=== PATIENT | female | born 1930 | race Caucasian/White ===

== ENCOUNTER 2020-05-05 02:05 | Emergency (ER) | payer MEDICARE ==
[~2020-05-05] VITALS: Ht 170.2 cm; Wt 54.9 kg
[~2020-05-05 02:05] MED LIST: ACET500T73 PO; LOSA100T14 PO; METO-237 PO; METO50TA6 PO; MULT-43 PO
[2020-05-05 02:24] VITALS: BP 151/101
[2020-05-05 02:27] VITALS: BP 151/101
[2020-05-05] MEDS ORDERED: HYDR25TA9 PO (02:35)
[2020-05-05 02:40] VITALS: BP 129/58
[2020-05-05 03:01] LABS: BASOPHIL % 0.7 % (0.0-0.2); EOSINOPHIL # 0.1 10^3/uL (0.0-0.2); EOSINOPHIL % 1.8 % (0.0-5.0); LYMPHOCYTES # 1.87 10^3/uL1 (1.0-4.8); MEAN CORP HGB 31.4 pg (26-34); MONOCYTES # 0.6 10^3/uL (0.3-0.8); NEUTROPHIL # 2.9 10^3/uL (1.8-7.7); PLATELET COUNT 303 10^3/uL (150-400); RED CELL DISTRIBUTION WIDTH 12.8 % (11.5-14.5)
--- NOTE | 2020-05-05 03:09 | PCM.EKG ---
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
--- NOTE | 2020-05-05 03:10 | ER.PDOC ---
General Chief Complaint: General Complaint Stated Complaint: HIGH BLOOD PRESSURE TRAVEL OUT OF US: No Time seen by MD: 03:07 Source: patient Exam Limitations: no limitations History of Present Illness Initial Comments High blood pressure and fatigue. Timing/Duration: 1/2 hour Severity: mild Associated Symptoms: denies symptoms Allergies: Coded Allergies: Penicillins (Verified Allergy, Unknown, SWELLING, RASH, 03/11/20) codeine (Verified Allergy, Unknown, 03/11/20) Home Meds Reported Medications Hydrochlorothiazide (HYDROCHLOROTHIAZIDE) 25 Mg Tablet, 1 TAB PO DAILY, #30 TAB 5 Refills 05/05/20 Multivit With Calcium,Iron,Min (MULTIPLE VITAMINS FOR WOMEN) 1 Each Tablet, 1 TAB PO QD for 30 Days, #30 TAB 0 Refills 03/11/20 Losartan Potassium (LOSARTAN POTASSIUM) 100 Mg Tablet, 1 TAB PO DAILY24, #30 TAB 5 Refills 03/11/20 Metoprolol Succinate (METOPROLOL SUCCINATE) 50 Mg Tab.er.24h, 1 TAB PO BID, #30 TAB 5 Refills 03/11/20 Past Medical History Medical History: hypertension Surgical History: no surgical history Social History Alcohol Use: none Drug Use: none Review of Systems Constitutional: no symptoms reported EENTM: no symptoms reported Respiratory: no symptoms reported Cardiovascular: see HPI Gastrointestinal: no symptoms reported Genitourinary: no symptoms reported All Other Systems: Reviewed and Negative Physical Exam General Appearance: No Apparent Distress, WD/WN EENT: eyes nml inspection, nml ENT inspection, pharynx nml Neck: Non-Tender, Full Range of Motion, Supple, Normal Inspection Respiratory: chest non-tender, lungs clear, normal breath sounds, no respiratory distress CVS: reg rate & rhythm, no murmur, no gallop, pulses nml, nml capillary refill Gastrointestinal: Normal Bowel Sounds, No Pulsatile Mass, Non Tender Back: Normal Inspection Extremities: Normal Range of Motion Neurologic/Psychiatric: securities settlement processor II-XII NML as Tested Skin: Normal Color Results/Orders Results/Orders Orders - ARIANA FLORES MD Cbc With Auto Diff (05/05/20 02:50) Comprehensive Metabolic Panel (05/05/20 02:50) Creatine Kinase (05/05/20 02:50) Creatine Kinase Mb (05/05/20 02:50) Troponin I (05/05/20 02:50) Xr Chest 1v (05/05/20 02:50) Ekg-Routine (05/05/20 02:50) Vital Signs Date Time Temp Pulse Resp B/P (MAP) Pulse Ox O2 Delivery O2 Flow Rate FiO2 05/05/20 03:26 78 18 123/61 (81) 05/05/20 02:40 129/58 (81) 05/05/20 02:27 84 18 05/05/20 02:24 98.1 84 18 05/05/20 02:24 98.1 84 18 151/101 (118) 100 Room Air Laboratory Tests Test 05/05/20 02:22 White Blood Count 5.5 10^3/uL (4.5-11.0) Red Blood Count 4.56 10^6/uL (4.00-5.20) Hemoglobin 14.3 g/dL (12.0-15.0) Hematocrit 41.9 % (36.0-46.0) Mean Corpuscular Volume 91.9 fL (78-100) Mean Corpuscular Hemoglobin 31.4 pg (26-34) Mean Corpuscular Hemoglobin Concent 34.1 g/dL (33-36.5) Red Cell Distribution Width 12.8 % (11.5-14.5) Platelet Count 303 10^3/uL (150-400) Mean Platelet Volume 11.6 fL (7.8-11.0) H Neutrophils (%) (Auto) 53.0 % (41.0-85.0) Lymphocytes (%) (Auto) 34.0 % (24.0-44.0) Monocytes (%) (Auto) 10.0 % (5.0-12.0) Neutrophils # (Auto) 2.9 10^3/uL (1.8-7.7) Lymphocytes # (Auto) 1.87 10^3/uL1 (1.0-4.8) Monocytes # (Auto) 0.6 10^3/uL (0.3-0.8) Absolute Immature Granulocyte (auto 0.03 10^3 u/L (0-2) Absolute Eosinophils (auto) 0.1 10^3/uL (0.0-0.2) Immature Granulocytes % 0.50 % (0.00-0.50) Eosinophils % 1.8 % (0.0-5.0) Basophils % 0.7 % (0.0-0.2) H Basophils # 0.0 10^3/uL (0.0-0.1) Sodium Level 129 mmol/L (132-145) #L Potassium Level 3.2 mmol/L (3.6-5.2) L Chloride Level 103.0 mmol/L (96-109) Carbon Dioxide Level 25.0 mmol/L (20.0-32) Anion Gap 4.2 Blood Urea Nitrogen 30 mg/dL (7-18) H Creatinine 1.30 mg/dL (0.59-1.40) Estimated GFR () 46.9 (>/=60) Est GFR (CKD-EPI)(Non-Afr Micronesian) 38.7 (>/=60) BUN/Creatinine Ratio 23.0 Glucose Level 114 mg/dL (70-110) H Calcium Level 11.8 mg/dL (8.4-10.5) H Total Bilirubin 0.7 mg/dL (0.2-1.0) Aspartate Amino Transferase (AST) 19 U/L (0-35) Alanine Aminotransferase (ALT) 18 U/L (12-78) Alkaline Phosphatase 115 U/L (50-136) Total Creatine Kinase 38 U/L (26-192) Creatine Kinase MB < 0.5 ng/mL (0.5-3.6) L Troponin I < 0.02 ng/mL (0.00-0.05) Total Protein 7.8 g/dL (6.4-8.2) Albumin 3.7 g/dL (3.4-5.0) Globulin 4.1 Albumin/Globulin Ratio 0.902 Progress Progress CXR: Senescent changes or underlying chronic lung disease with presumed atelectasis or scarring at the left costophrenic angle. Infiltrate is considered less likely, but is not entirely excluded in the appropriate clinical setting. Patient told that her Potassium is low and Calcium high, she will need to follow up with her PCP tomorrow for further evaluation of her hyperkalemia. She is asymptomatic at this time. Her blood pressure readings have been normal the whole time in the ED. EKG/XRAY/CT/US EKG: NSR, LBBB EKG Comments: Rate 90, A fib ER DEPART Departure Time of Disposition: 03:42 Disposition: 01 HOME, SELF-CARE Impression: Primary Impression: Hypertension Additional Impressions: Anxiety Hypercalcemia Condition: Stable Referrals: SARAI MOJICA HOMOEOPATH (PCP) PRIMARY CARE PROVIDER Additional Instructions: F/U with your PCP in 2-3 days Return to ED if worsening or concerns Duration or Time Spent with Pa: 30 min Problem Qualifiers Primary Impression: Hypertension Hypertension type: unspecified Qualified Codes: I10 - Essential (primary) hypertension ARIANA FLORES MD May 05, 2020 03:10
--- NOTE | 2020-05-05 03:22 | DIREP ---
PROCEDURE:CHEST 1 VIEW COMPARISON:None. INDICATIONS:Elevated blood pressure FINDINGS: LUNGS/PLEURA:Senescent changes or underlying chronic lung disease with mild interstitial thickening throughout the bilateral hemithoraces. Ill-defined opacity at the left costophrenic angle may reflect atelectasis or potential scarring. Infiltrate is considered less likely, but is not entirely excluded in the appropriate clinical setting. VASCULATURE:No pulmonary vascular congestion. CARDIAC:The heart is not enlarged. MEDIASTINUM:Mediastinal contours appear within acceptable limits with mild tortuosity of the descending thoracic aorta. BONES:No acute abnormality. CONCLUSION: 1. Senescent changes or underlying chronic lung disease with presumed atelectasis or scarring at the left costophrenic angle. Infiltrate is considered less likely, but is not entirely excluded in the appropriate clinical setting. Dictated by: Juarez Ibrahim M.D. On 05/05/2020 at 03:20 AM
[2020-05-05 03:26] VITALS: BP 123/61
[2020-05-05 03:29] LABS: ALANINE AMINOTRANSFERASE(ML) 18 U/L (12-78); ALKALINE PHOSPHATASE 115 U/L (50-136); ASPARTATE AMINO TRANSFERASE 19 U/L (0-35); CALCIUM 11.8 mg/dL (8.4-10.5); GLUCOSE 114 mg/dL (70-110)
[2020-05-06] MEDS ORDERED: METO50TA6 PO (15:33)
== END 2020-05-05 03:59 | disposition home or self-care (01) ==
LOC: ER 02:05
DX: I10 Essential (primary) hypertension (principal); E83.52 Hypercalcemia; F41.9 Anxiety disorder, unspecified; Z79.899 Other long term (current) drug therapy; Z88.0 Allergy status to penicillin; Z88.5 Allergy status to narcotic agent
CPT/HCPCS: 36415; 71045; 80053; 82550; 82553; 84484; 85025; 93005; 99285

== ENCOUNTER 2020-05-06 14:27 | Emergency (ER) | payer MEDICARE ==
[~2020-05-06] VITALS: Ht 177.8 cm; Wt 56.7 kg
--- NOTE | 2020-05-06 14:29 | NUR ---
ARRIVAL PT ARRIVED TO ED WITH C/O RIGHT SIDE WEAKNESS, UNCLEAR SPEECH AND WORD SALAD. CODE STROKE CALLED IMMIDIATELY. PT UNABLE TO ANSWER QUESTIONS WITH WORD SALAD AND SLURRED SPEECH AND RIGHT SIDE FACIAL DROOP. PT ABLE TO TRANSFER FROM WHEELCHAIR TO BED. SON AT BEDSIDE TO PROVIDE HISTORY. SON STATES SYMPTOMS STARTED AT 1410.
--- NOTE | 2020-05-06 14:30 | NUR ---
CODE STROKE CODE STROKE CALLED.
--- NOTE | 2020-05-06 14:33 | NUR ---
CT PT TAKEN TO CT BY UMPQUA CLINICAL MICROBIOLOGIST.
--- NOTE | 2020-05-06 14:38 | NUR ---
CT PT BACK FROM CT.
--- NOTE | 2020-05-06 14:38 | NUR ---
KAREL VINSON CALLED FOR MEDICATION LIST TO CONFIRM NO BLOOD THINNER USE AT THIS TIME.
--- NOTE | 2020-05-06 14:39 | NUR ---
PT CHANGE IN CONDITION. PT BACK FROM CT. PT HAS COMPLETE RIGHT SIDE PARALYSIS, PT DROOLING. PT UNABLE TO FOLLOW COMMANDS AT THIS TIME. CHANGE IN CONDITION REPORTED TO DR ROCHA.
--- NOTE | 2020-05-06 14:46 | PCM.EKG ---
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
[2020-05-06 14:51] VITALS: BP 133/64
--- NOTE | 2020-05-06 14:53 | DIREP ---
PROCEDURE:CT HEAD OR BRAIN W/O CONTRAST COMPARISON:None. INDICATIONS:STROKE TECHNIQUE:CT images were created without intravenous contrast. The study was reviewed on abdominal, brain, subdural and bone windows the FINDINGS: VENTRICLES:Mild ventriculomegaly with mild atrophy. Mild white matter changes seen in the centrum semiovale and in the periventricular white matter which may be secondary to small vessel disease and/or aging. Basal ganglia and thalamus are normal. CEREBRUM:Normal cerebral morphology with appropriate murphy white matter differentiation. No evidence for unilateral hyperdense MCA sign is seen. No hyperdense venous sinus, effacement of sulci, loss of insular cortex or loss of lenticular nucleus is seen. No acute infarct, bleed or mass lesion is seen. No acute or chronic epidural, subdural subarachnoid hemorrhage is seen. No edema, midline shift or increased intracranial pressure is seen. CEREBELLUM:No posterior fossa infarcts or mass lesions are seen. Mild atrophy noted. BRAINSTEM:No focal ischemic changes in the henny or the midbrain. BASAL CISTERNS:Negative. HEMORRHAGE:No MASS LESION:No ACUTE INFARCT:No SKULL:No skull fracture, scalp hematoma or radiopaque foreign body is seen. SINUSES:No air-fluid levels in the maxillary or sphenoid sinuses as visualized. No fluid in the mastoids. OTHER:None CONCLUSION:Mild ventriculomegaly with mild atrophy and mild white matter changes. No acute infarct, bleed or mass lesion is seen. Dictated by: Bipin Tai MD on 05/06/2020 at 02:49 PM
[2020-05-06 15:01] LABS: BASOPHIL % 0.3 % (0.0-0.2); EOSINOPHIL # 0.1 10^3/uL (0.0-0.2); LYMPHOCYTES # 1.51 10^3/uL1 (1.0-4.8); LYMPHOCYTES % 25.6 % (24.0-44.0); MONOCYTES # 0.4 10^3/uL (0.3-0.8); MONOCYTES % 7.1 % (5.0-12.0); NEUTROPHIL # 3.8 10^3/uL (1.8-7.7); NEUTROPHILS % 65.3 % (41.0-85.0); PLATELET COUNT 309 10^3/uL (150-400); RED CELL DISTRIBUTION WIDTH 12.8 % (11.5-14.5)
--- NOTE | 2020-05-06 15:03 | ER.PDOC ---
General Chief Complaint: Stroke Symptoms Stated Complaint: POSSIBLE STROKE TRAVEL OUT OF US: No Time seen by MD: 14:29 Source: patient, family Exam Limitations: no limitations History of Present Illness Initial Comments Pt actually seen her PCP this morning. She went home and took a "bite of lunch" and then got up and sat down in recliner and then told her something was wrong and needed to go to the hospital. Sx started at 1410 hours with just a slurred speech. On arrival here, she had slurred speech and seemed to have difficulty understanding commands. Pt went to CT and started having some difficulty controlling right arm. Now back to room she can' move rt arm but can't girp and is certainly week, can't smile and is now drooling. Rt leg is strong and equal to the left. Contraindication for anticoagulation was a GI bleed November 2019 Severity: severe Associated Symptoms: denies symptoms Allergies: Coded Allergies: Penicillins (Verified Allergy, Unknown, SWELLING, RASH, 03/11/20) codeine (Verified Allergy, Unknown, 03/11/20) Home Meds Reported Medications Metoprolol Tartrate 50MG (LOPRESSER 50MG) 50 Mg Tablet, 50 MG PO BID for HYPERTENSION, #60 TAB 05/06/20 Losartan Potassium (LOSARTAN POTASSIUM) 100 Mg Tablet, 1 TAB PO DAILY24, #30 TAB 5 Refills 03/11/20 Discontinued Reported Medications Hydrochlorothiazide (HYDROCHLOROTHIAZIDE) 25 Mg Tablet, 1 TAB PO DAILY, #30 TAB 5 Refills 05/05/20 Multivit With Calcium,Iron,Min (MULTIPLE VITAMINS FOR WOMEN) 1 Each Tablet, 1 TAB PO QD for 30 Days, #30 TAB 0 Refills 03/11/20 Metoprolol Succinate (METOPROLOL SUCCINATE) 50 Mg Tab.er.24h, 1 TAB PO BID, #30 TAB 5 Refills 03/11/20 Past Medical History Medical History: hypertension Surgical History: no surgical history Social History Smoking: non-smoker Alcohol Use: none Drug Use: none Review of Systems Constitutional: other Results/Orders Results/Orders Orders - ROJELIO ROCHA MD Cbc With Auto Diff (05/06/20 14:39) Comprehensive Metabolic Panel (05/06/20 14:39) Creatine Kinase (05/06/20 14:39) PT (05/06/20 14:39) Xr Chest 1v (05/06/20 14:39) Partial Thromboplastin Time. (05/06/20 14:39) Troponin I (05/06/20 14:39) Ekg-Routine (05/06/20 14:39) Ct Head Wo Contrast (05/06/20 14:39) Rt O2 Per Hour (05/06/20 14:39) Saline Lock (05/06/20 14:39) Alteplase (Activase) (05/06/20 15:36) Alteplase (Activase) (05/06/20 15:34) Cta Head (05/06/20 15:34) Cta Neck (05/06/20 15:34) Vital Signs Date Time Temp Pulse Resp B/P (MAP) Pulse Ox O2 Delivery O2 Flow Rate FiO2 05/06/20 14:51 98.2 94 16 05/06/20 14:51 98.2 94 16 133/64 (87) 99 Room Air 05/06/20 14:51 98.2 94 16 99 Laboratory Tests Test 05/06/20 14:50 White Blood Count 5.9 10^3/uL (4.5-11.0) Red Blood Count 4.19 10^6/uL (4.00-5.20) Hemoglobin 13.0 g/dL (12.0-15.0) Hematocrit 38.6 % (36.0-46.0) Mean Corpuscular Volume 92.1 fL (78-100) Mean Corpuscular Hemoglobin 31.0 pg (26-34) Mean Corpuscular Hemoglobin Concent 33.7 g/dL (33-36.5) Red Cell Distribution Width 12.8 % (11.5-14.5) Platelet Count 309 10^3/uL (150-400) Mean Platelet Volume 10.8 fL (7.8-11.0) Neutrophils (%) (Auto) 65.3 % (41.0-85.0) Lymphocytes (%) (Auto) 25.6 % (24.0-44.0) Monocytes (%) (Auto) 7.1 % (5.0-12.0) Neutrophils # (Auto) 3.8 10^3/uL (1.8-7.7) Lymphocytes # (Auto) 1.51 10^3/uL1 (1.0-4.8) Monocytes # (Auto) 0.4 10^3/uL (0.3-0.8) Absolute Immature Granulocyte (auto 0.04 10^3 u/L (0-2) Absolute Eosinophils (auto) 0.1 10^3/uL (0.0-0.2) Immature Granulocytes % 0.70 % (0.00-0.50) H Eosinophils % 1.0 % (0.0-5.0) Basophils % 0.3 % (0.0-0.2) H Basophils # 0.0 10^3/uL (0.0-0.1) Prothrombin Time 10.5 SEC (9.3-11.3) Prothrombin Time INR (Non-Therap) 1.0 Activated Partial Thromboplast Time 23.5 SEC (24.67-30.72) Sodium Level 141 mmol/L (132-145) Potassium Level 3.3 mmol/L (3.6-5.2) L Chloride Level 106.0 mmol/L (96-109) Carbon Dioxide Level 22.8 mmol/L (20.0-32) Anion Gap 15.5 Blood Urea Nitrogen 35 mg/dL (7-18) H Creatinine 1.11 mg/dL (0.59-1.40) Estimated GFR () 56.3 (>/=60) Est GFR (CKD-EPI)(Non-Afr Fijian) 46.5 (>/=60) BUN/Creatinine Ratio 31.0 Glucose Level 137 mg/dL (70-110) H Calcium Level 11.0 mg/dL (8.4-10.5) H Total Bilirubin 0.9 mg/dL (0.2-1.0) Aspartate Amino Transferase (AST) 18 U/L (0-35) Alanine Aminotransferase (ALT) 16 U/L (12-78) Alkaline Phosphatase 104 U/L (50-136) Total Creatine Kinase 40 U/L (26-192) Troponin I < 0.02 ng/mL (0.00-0.05) Total Protein 7.0 g/dL (6.4-8.2) Albumin 3.6 g/dL (3.4-5.0) Globulin 3.4 Albumin/Globulin Ratio 1.058 Progress Progress labs are actually unremarkable and the CT and CTA also came back unremarkable. Pt was given TPA per weight and over approximately 30 minutes, her neuro functions all returned to normal. Spoke with Dr. Vargas, kacey-medicine neurologist, and he recommended the TPA and get the CTA. Pt given the TPA prior to the CTA being done. technical documentation specialist reported that her sx started improving while in CT scanner. Spoke with Dr. Wynne and reported the results of the CTA and her response to the TPA. He did the video after all sx had resolved. He recommended admission to a certified stroke center. I called [facility] as [facility] are the Certified Stroke Center for our area. They did an auto except and pt is being transferred to them as I am typing this up. ER DEPART Departure Time of Disposition: 17:31 Disposition: 70 DISC/XFER TO [facility] Impression: Primary Impression: CVA (cerebral vascular accident) Condition: Improved Patient Instructions: Stroke Prevention, Gkbh-dp-Ogeq, Stroke, Ofaa-bc-Ofip, Stroke, Therapy After, Adult Referrals: SARAI MOJICA CRUST SORTER (PCP) PRIMARY CARE PROVIDER Duration or Time Spent with Pa: 1.6 hrs. Critical Care Note Total Time (mins): 35 Comments See note on all the calls and transferring of the pt. ROJELIO ROCHA MD May 06, 2020 15:03
--- NOTE | 2020-05-06 15:16 | DIREP ---
PROCEDURE:CHEST 1 VIEW COMPARISON:[facility], CR, XRAY CHEST SINGLE VW, 05/05/2020, 02:54 AM. INDICATIONS:STROKE FINDINGS: LUNGS/PLEURA:No significant pulmonary parenchymal abnormalities. No effusions. The lungs are well-expanded and clear. No ground-glass or interstitial infiltrates are seen. No pneumonia, heart failure or effusions identified. VASCULATURE:Normal. Unremarkable pulmonary vasculature. CARDIAC:Markedly tortuous aorta including the ascending, arch and the descending thoracic aorta. MEDIASTINUM:Normal. No visible mass or adenopathy. BONES:The levoscoliosis of the spine is positional. OTHER:Negative. CONCLUSION:No active disease. No ground-glass infiltrates, heart failure or pneumonia is seen. Dictated by: Bipin Tai MD on 05/06/2020 at 03:14 PM
[2020-05-06 15:23] LABS: ALANINE AMINOTRANSFERASE(ML) 16 U/L (12-78); ALKALINE PHOSPHATASE 104 U/L (50-136); ASPARTATE AMINO TRANSFERASE 18 U/L (0-35); CARBON DIOXIDE 22.8 mmol/L (20.0-32); GLUCOSE 137 mg/dL (70-110)
--- NOTE | 2020-05-06 15:25 | NUR ---
TELESTROKE DR ROCHA ON THE PHONE WITH TELESTROKE SERVICE.
--- NOTE | 2020-05-06 15:28 | NUR ---
TELESTROKE NEUROLOGIST DR ROCHA ON THE PHONE WITH NEUROLOGIST.
[2020-05-06] MEDS ORDERED: METO50TA6 PO (15:33)
[2020-05-06] MEDS ORDERED: ACTIVASE IV STA (15:34)
[2020-05-06] MEDS ORDERED: ALTEPLASE 100 MG IV ONE (15:36)
--- NOTE | 2020-05-06 15:48 | NUR ---
ACTIVACE TOTAL DOSE GIVEN 49.1MG GIVEN TOTAL BOLUS DOSE 4.9MG IV DRIP 44.2MG OVER 60 MINUTES. ADMINISTRATION WITNESSED BY Darling BLEVINS RN.
--- NOTE | 2020-05-06 16:53 | DIREP ---
PROCEDURE:CTA HEAD NECK COMPARISON:None. INDICATIONS:cva, confusion TECHNIQUE:Initially, a head CT was performed without contrast. After obtaining the patient's consent, CTA images of the head and neck were obtained with non-ionic contrast, including multi-planar/3-D imaging to optimize visualization of vascular anatomy. FINDINGS: NECK CTA: Limited evaluation due to early timing of the contrast bolus. AORTIC ARCH:Normal configuration. There is aneurysmal dilatation of the ascending thoracic aorta measuring 4.5 cm in diameter. RIGHT CAROTID SYSTEM:Mild stenosis of the proximal right internal carotid artery secondary to calcified atherosclerotic plaque. Otherwise unremarkable. LEFT CAROTID SYSTEM:Atherosclerotic calcifications in the carotid bifurcation and proximal left internal carotid artery without flow-limiting stenosis. VERTEBRAL ARTERIES: Left vertebral artery is dominant. Otherwise unremarkable. NECK TISSUES:Enhancing/hyperdense right thyroid nodule measuring 0.9 cm. LUNGS:Ground-glass opacities in the periphery of the left upper lobe and dependent aspect of the right lower lobe. MEDIASTINUM:Unremarkable. BONE:Mild spondylosis and mild leftward curvature of the cervical spine. No aggressive osseous lesion seen. HEAD CTA: INTERNAL CAROTIDS:Mild atherosclerosis of the clinoid and supraclinoid segments without evidence of flow-limiting stenosis. ANTERIOR CEREBRALS:Unremarkable. MIDDLE CEREBRALS:Unremarkable. VERTEBRALS/BASILAR:Unremarkable. POSTERIOR CEREBRALS:Unremarkable. PCOMM'S:Not visualized. CONCLUSION: 1. Limited evaluation due to early timing of the contrast bolus. 2. No large vessel occlusion or flow-limiting stenosis. 3. Aneurysmal dilatation of the ascending thoracic aorta. 4. Enhancing/hyperdense right thyroid nodule. Consider further evaluation with ultrasound. Dictated by: Stanislav Rivas MD. On 05/06/2020 at 04:43 PM
--- NOTE | 2020-05-06 16:57 | NUR ---
DR GLENNY ROCHA SPOKE WITH DR MURRIETA AND DR MURRIETA IS READY FOR TELESTROKE COMPUTER ASSESSMENT.
--- NOTE | 2020-05-06 16:59 | NUR ---
DR SNYDER PERFORMED ASSESSMENT VIA COMPUTER.
--- NOTE | 2020-05-06 17:08 | NUR ---
[facility] DR ROCHA ON PHONE WITH [facility] TRANSFER LINE.
--- NOTE | 2020-05-06 17:13 | NUR ---
[facility] ACCEPT[facility] PT ACCEPTED ER TO ER TO DR SHAFFER. ARSALAN GUEVARA.
== END 2020-05-06 17:25 | disposition other institution (70) ==
LOC: ER 14:27
DX: I63.9 Cerebral infarction, unspecified (principal); I10 Essential (primary) hypertension; Z79.899 Other long term (current) drug therapy; Z88.0 Allergy status to penicillin; Z88.5 Allergy status to narcotic agent
CPT/HCPCS: 36415; 37195; 70450; 70496; 70498; 71045; 80053; 82550; 84484; 85025; 85610; 85730; 93005; 99291; Q9965; 99285; J2997

== ENCOUNTER → 2020-05-06 | Outpatient (CLI) | payer MEDICARE ==
[~2020-05-06] MED LIST changes: +HYDR25TA9 PO
[2020-05-06 13:30] LABS: CALCIUM 10.7 mg/dL (8.4-10.5); CARBON DIOXIDE 25.3 mmol/L (20.0-32)
== END | disposition home or self-care (01) ==
LOC: NPLAB 12:06
PROVIDERS: ATTEND Nurse Practitioner Family
DX: E83.52 Hypercalcemia (principal)
CPT/HCPCS: 36415; 80053; 82330; 83970

== ENCOUNTER 2021-05-02 06:16 | Inpatient (IN) | payer MEDICARE ==
[2021-05-02] VITALS (8 sets, daily range): BP systolic 128–145; BP diastolic 65–81
[~2021-05-02] VITALS: Ht 160 cm; Wt 52.2 kg
--- NOTE | 2021-05-02 07:13 | PCM.EKG ---
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 : 1930 Requested By: CAMDEN FROST Order Number: [id number] Reading MD: Camden Frost Measurements Intervals [place] Rate: 101 P: [place]: QRS: 34 QRSD: 139 T: 109 QT: 398 QTc: 516 Interpretive Statements Atrial fibrillation Nonspecific intraventricular conduction delay Anteroseptal infarct, old Abnormal T, consider ischemia, lateral leads Artifact in lead(s) I,II,III,aVR,aVL,aVF,V3,V6 Compared to ECG 05/06/2020 14:43:31 Intraventricular conduction delay now present T-wave abnormality now present Possible ischemia now present Atrial flutter no longer present AV block, advanced (high-grade) no longer present Electronically Signed On 05-10-2021 7:49:33 NUCLEAR MEDICINE SPECIALIST by Camden Frost Please click the below link to view image of tracing.
[2021-05-02 07:20] LABS: BASOPHIL % 0.7 % (0.0-0.2); EOSINOPHIL # 0.1 10^3/uL (0.0-0.2); EOSINOPHIL % 1.3 % (0.0-5.0); LYMPHOCYTES # 0.96 10^3/uL1 (1.0-4.8); LYMPHOCYTES % 17.9 % (24.0-44.0); MEAN CORP HGB 31.2 pg (26-34); MONOCYTES # 0.4 10^3/uL (0.3-0.8); MONOCYTES % 6.9 % (5.0-12.0); NEUTROPHIL # 3.9 10^3/uL (1.8-7.7); PLATELET COUNT 201 10^3/uL (150-400); RED CELL DISTRIBUTION WIDTH 14.1 % (11.5-14.5)
--- NOTE | 2021-05-02 07:39 | ER.PDOC ---
General Chief Complaint: Requesting Medical Care Stated Complaint: DIFF BREATHING Time seen by MD: 07:32 Source: patient Exam Limitations: no limitations History of Present Illness Initial Comments Difficulty breathing for about 3 to 4 days. No fever or chills. Patient has a mild cough. She denies chest pain. Severity: moderate Prior Episodes/Possible Cause: no prior episodes Associated Symptoms: cough Allergies: Coded Allergies: Penicillins (Verified Allergy, Unknown, SWELLING, RASH, 03/11/20) codeine (Verified Allergy, Unknown, 03/11/20) Home Meds Reported Medications Atorvastatin 40MG (LIPITOR 40MG) 40 Mg Tablet, 1 TAB PO DAILY, #30 TAB 5 Refills 05/02/21 Carvedilol 6.25MG (COREG 6.25MG) 6.25 Mg Tablet, 1 TAB PO BID, #180 TAB 1 Refill 05/02/21 Diltiazem Hcl (DILTIAZEM 24HR CD) 120 Mg Cap.er.24h, 60 MG PO BID, CAPSULE 05/02/21 Apixaban (Eliquis) 2.5 Mg Tablet, 2.5 MG PO BID, TABLET 05/02/21 Metoprolol Tartrate 50MG (LOPRESSER 50MG) 50 Mg Tablet, 50 MG PO BID for HYPERTENSION, #60 TAB 05/06/20 Losartan Potassium (LOSARTAN POTASSIUM) 100 Mg Tablet, 1 TAB PO DAILY24, #30 TAB 5 Refills 03/11/20 Past Medical History Medical History: cardiac problems Surgical History: other Family History Significant Family History: no pertinent family hx Social History Smoking: non-smoker Alcohol Use: none Drug Use: none Review of Systems Constitutional: no symptoms reported EENTM: no symptoms reported Respiratory: see HPI Cardiovascular: no symptoms reported Gastrointestinal: no symptoms reported All Other Systems: Reviewed and Negative Physical Exam General Appearance: No Apparent Distress, WD/WN Neck: Non-Tender, Full Range of Motion, Supple, Normal Inspection Respiratory: chest non-tender, no respiratory distress, no accessory muscle use, crackles Cardiovascular: Normal Peripheral Pulses, Regular Rate, Rhythm, No Edema, No Gallop, No JVD, No Murmur Gastrointestinal: Normal Bowel Sounds, No Organomegaly, No Pulsatile Mass, Non Tender, Soft Extremities: Normal Range of Motion, Non-Tender, Normal Inspection, No Pedal Edema, No Calf Tenderness, Normal Capillary Refill Neurologic/Psychiatric: medical staff services manager II-XII NML as Tested, No Motor/Sensory Deficits, Alert, Normal Mood/Affect, Oriented x 3 Skin: Normal Color, Warm/Dry Lymphatic: No Adenopathy Results/Orders Results/Orders Orders - ARIANA FLORES MD Covid19 Antigen Sofi Patel (05/02/21 07:39) Vital Signs Date Time Temp Pulse Resp B/P (MAP) Pulse Ox O2 Delivery O2 Flow Rate FiO2 05/02/21 07:03 98.4 98 20 135/67 (89) 95 Room Air 05/02/21 06:40 98.4 98 20 95 05/02/21 06:40 98.4 98 20 Laboratory Tests Test 05/02/21 07:10 05/02/21 07:39 White Blood Count 5.4 10^3/uL (4.5-11.0) Red Blood Count 4.20 10^6/uL (4.00-5.20) Hemoglobin 13.1 g/dL (12.0-15.0) Hematocrit 41.4 % (36.0-46.0) Mean Corpuscular Volume 98.6 fL (78-100) Mean Corpuscular Hemoglobin 31.2 pg (26-34) Mean Corpuscular Hemoglobin Concent 31.6 g/dL (33-36.5) L Red Cell Distribution Width 14.1 % (11.5-14.5) Platelet Count 201 10^3/uL (150-400) Mean Platelet Volume 12.3 fL (7.8-11.0) H Neutrophils (%) (Auto) 73.0 % (41.0-85.0) Lymphocytes (%) (Auto) 17.9 % (24.0-44.0) L Monocytes (%) (Auto) 6.9 % (5.0-12.0) Neutrophils # (Auto) 3.9 10^3/uL (1.8-7.7) Lymphocytes # (Auto) 0.96 10^3/uL1 (1.0-4.8) L Monocytes # (Auto) 0.4 10^3/uL (0.3-0.8) Absolute Immature Granulocyte (auto 0.01 10^3 u/L (0-2) Absolute Eosinophils (auto) 0.1 10^3/uL (0.0-0.2) Immature Granulocytes % 0.20 % (0.00-0.50) Eosinophils % 1.3 % (0.0-5.0) Basophils % 0.7 % (0.0-0.2) H Basophils # 0.0 10^3/uL (0.0-0.1) Prothrombin Time 10.9 SEC (9.6-12.0) Prothrombin Time INR (Non-Therap) 1.0 Activated Partial Thromboplast Time 20.5 SEC (24.67-30.72) D-Dimer 0.48 mg/L (0.19-0.49) Sodium Level 142 mmol/L (132-145) Potassium Level 4.9 mmol/L (3.6-5.2) Chloride Level 108.0 mmol/L (96-109) Carbon Dioxide Level 23.2 mmol/L (20.0-32) Anion Gap 15.7 Blood Urea Nitrogen 14 mg/dL (7-18) Creatinine 0.77 mg/dL (0.59-1.40) Estimated GFR () 85.6 (>/=60) Est GFR (CKD-EPI)(Non-Afr Ecuadorean) 70.7 (>/=60) BUN/Creatinine Ratio 18.0 Glucose Level 126 mg/dL (70-110) H Calcium Level 10.5 mg/dL (8.4-10.5) Total Bilirubin 1.3 mg/dL (0.2-1.0) H Aspartate Amino Transferase (AST) 56 U/L (0-35) H Alanine Aminotransferase (ALT) 61 U/L (12-78) Alkaline Phosphatase 113 U/L (50-136) Total Creatine Kinase 61 U/L (26-192) Creatine Kinase MB 0.5 ng/mL (0.5-3.6) Troponin I High Sensitivity < 4 ng/L (0-50) Pro-B-Type Natriuretic Peptide 4055 pg/mL (0-450) H Total Protein 6.2 g/dL (6.4-8.2) L Albumin 3.4 g/dL (3.4-5.0) Globulin 2.8 Albumin/Globulin Ratio 1.214 Helicobacter pylori Screen POSITIVE (NEGATIVE) SARS-CoV-2 Antigen (Rapid) NEGATIVE (NEGATIVE) Progress Progress CXR: Coarse interstitial markings in the lower lungs are more prominent than on previous study. Some of this may be attributable to suboptimal patient positioning. Lower lobe infiltrates cannot be excluded. Recommend PA and lateral chest images when clinically stable. EKG/XRAY/CT/US EKG: nonspecific ST T wave chg EKG Comments: HR 101, A fib ER DEPART Departure Time of Disposition: 09:41 Disposition: 09 ADMITTED INPATIENT Impression: Primary Impression: Acute exacerbation of CHF (congestive heart failure) Additional Impressions: Shortness of breath Atrial fibrillation Condition: Stable Referrals: SARAI MOJICA MOTORCYCLE MECHANIC (PCP) PRIMARY CARE PROVIDER Comments Admitted to Dr. Rajan. Spoke with Dr. Salazar who will be consulting. Duration or Time Spent with Pa: 60 min Problem Qualifiers Primary Impression: Acute exacerbation of CHF (congestive heart failure) Heart failure type: unspecified Qualified Codes: I50.9 - Heart failure, unspecified Additional Impressions: Atrial fibrillation Atrial fibrillation type: unspecified Qualified Codes: I48.91 - Unspecified atrial fibrillation ARIANA FLORES MD May 02, 2021 07:39
[2021-05-02 07:47] LABS: ALANINE AMINOTRANSFERASE(ML) 61 U/L (12-78); ALKALINE PHOSPHATASE 113 U/L (50-136); ASPARTATE AMINO TRANSFERASE 56 U/L (0-35); CALCIUM 10.5 mg/dL (8.4-10.5); CARBON DIOXIDE 23.2 mmol/L (20.0-32); GLUCOSE 126 mg/dL (70-110)
--- NOTE | 2021-05-02 08:06 | DIREP ---
PROCEDURE:CHEST 1 VIEW COMPARISON:[facility], CR, XRAY CHEST SINGLE VW, 05/06/2020, 02:55 PM. INDICATIONS:SHORTNESS OF BREATH FINDINGS: LUNGS/PLEURA:The patient is rotated to the right. There are coarse interstitial markings in the lower lungs which are more prominent on the previous study. This may be accentuated by the suboptimal patient positioning. VASCULATURE:Normal. Unremarkable pulmonary vasculature. CARDIAC:Normal. No cardiac silhouette abnormality or cardiomegaly. MEDIASTINUM:Aorta is tortuous. BONES:Normal. No fracture or visible bony lesion. OTHER:Negative. CONCLUSION:Coarse interstitial markings in the lower lungs are more prominent than on previous study. Some of this may be attributable to suboptimal patient positioning. Lower lobe infiltrates cannot be excluded. Recommend PA and lateral chest images when clinically stable. Dictated by: Gagandeep Gaona M.D. on 05/02/2021 at 08:03 AM
[2021-05-02] MEDS ORDERED: CARV6.25 PO (09:41)
[2021-05-02] MEDS ORDERED: DILT120C30 PO (09:41)
[2021-05-02] MEDS ORDERED: APIX2.5T PO (09:41)
[2021-05-02] MEDS ORDERED: ATOR40TA PO (09:41)
[2021-05-02] MEDS ORDERED: LOPRESSOR PO STA (10:13)
[2021-05-02] MEDS ORDERED: LASIX IV STA (10:13)
[2021-05-02] MEDS ORDERED: TOPROL XL PO ONE (10:20)
[2021-05-02] MEDS ORDERED: LASIX ONE (10:20)
[2021-05-02] MEDS ORDERED: LOPRESSER ONE (10:25)
[2021-05-02] MEDS ORDERED: MAGN400T36 PO (11:01)
--- NOTE | 2021-05-02 11:50 | NUR ---
ARRIVAL PATIENT ARRIVED ON MED-SURG UNIT AT THIS TIME TO ROOM #331. RECEIVED REPORT, ASSUMED CARE FOR PATIENT AT THIS TIME. VITAL SIGNS OBTAINED, PLACED PATIENT ON TELEMETRY #3.
--- NOTE | 2021-05-02 13:54 | PCM.HP ---
History of Present Illness Reason for Visit: Shortness of breath History of Present Illness 89-year-old female who presented to the Emergency Room with progressively worsening shortness of breath for the last 4 days with associated orthopnea and paroxysmal nocturnal dyspnea. Upon presentation to the ED, EKG shows atrial fibrillation with controlled ventricular response. ProBNP was noted to be 4055. A diagnosis of acute decompensated heart failure Patient is admitted to the hospital for further management. Patient started on IV diuretics. Human Resources Advisor consulted. Past Medical History Cardiac: AFIB, HTN Review of Systems Respiratory: Shortness of breath, SOB with excertion Cardiovascular: No: Chest Pain, Palpitations Gastrointestinal: No: Nausea, Vomiting Allergies: Coded Allergies: Penicillins (Verified Allergy, Unknown, SWELLING, RASH, 03/11/20) codeine (Verified Allergy, Unknown, 03/11/20) Scheduled Apixaban (Eliquis), 2.5 MG PO BID, (Reported) Atorvastatin 40MG (Lipitor 40MG), 1 TAB PO DAILY, (Reported) Carvedilol 6.25MG (Coreg 6.25MG), 1 TAB PO BID, (Reported) Diltiazem Hcl (Diltiazem 24HR Cd), 60 MG PO BID, (Reported) Losartan Potassium (Losartan Potassium), 1 TAB PO DAILY24, (Reported) Magnesium Oxide (Magnesium), 1 TAB PO BID, (Reported) Metoprolol Tartrate 50MG (Lopresser 50MG), 50 MG PO BID, (Reported) VTE VTE Risk Total Score: 3 VTE Risk Score VTE Risk: Score 0-1 = Low Risk (Aggressive mobilization; early ambulation; no VTE prophylaxis required) Score 2: Moderate Risk (Intermittent/Pneumatic Compression Device OR Lovenox/Heparin/Coumadin) Score 3-4: High Risk (Intermittent/Pneumatic Compression Device AND Lovenox/Heparin/Coumadin) Score > or =5: Highest Risk (Intermittent/Pneumatic Compression Device AND Lovenox/Heparin/Coumadin) Antico:Hep/LMWH/Coum/Xarelto: No VTE VTE Present on Admission: No Currently receiving anticoagul: No VTE Risk Total Score: 3 Antico:Hep/LMWH/Coum/Xarelto: No Exam Vital Signs Vital Signs Date Time Temp Pulse Resp B/P (MAP) Pulse Ox O2 Delivery O2 Flow Rate FiO2 05/02/21 12:39 Room Air 05/02/21 12:20 98.1 89 18 131/67 (88) 95 General Appearance: Alert, Oriented X3, moderate distress HEENT: Atraumatic, PERRLA Respiratory: Other (Few bibasilar crackles) Cardiovascular: Other (Irregular irregular) Abdominal: Normal bowel sounds, Soft, No tenderness Extremities: No clubbing, No cyanosis Skin: No breakdown, No lesions Neuro: Normal gait, Normal speech Psych/Mental Status: Mental status NL, Mood NL Assessment/Plan Assessment/Plan Assessment/Plan Plan Admit IV diuresis Monitor kidney function urine output Monitor and correct electrolytes Serial troponins 2D echo Consult cardiology for evaluation and further recommendations Reconcile home meds GI and DVT prophylaxis as appropriate Expect length of stay more than one midnight Problems: (1) Acute exacerbation of CHF (congestive heart failure) Status: Acute ICD Code: I50.9 - Heart failure, unspecified SNOMED: 051168709, [id number] (2) Atrial fibrillation Status: Acute ICD Code: I48.91 - Unspecified atrial fibrillation SNOMED: 05564115 (3) Hypertension ICD Code: I10 - Essential (primary) hypertension SNOMED: 28952560 Patient History: FH: breast cancer G8 MOTHER, , Age:98 FH: coronary artery bypass surgery G8 BROTHER 19 CHILD FH: coronary artery disease G8 BROTHER 19 CHILD Hypertension G8 SISTER G8 SISTER No known health problems G8 BROTHER G8 SISTER G8 SISTER 19 CHILD No Family History of: Alzheimer's disease Asthma Cerebrovascular disorder Chronic obstructive pulmonary disease Congestive heart failure Diabetes insipidus Diabetes mellitus Parkinson's disease Problem Qualifiers (1) Acute exacerbation of CHF (congestive heart failure): Heart failure type: unspecified Qualified Codes: I50.9 - Heart failure, unspecified (2) Atrial fibrillation: Atrial fibrillation type: unspecified Qualified Codes: I48.91 - Unspecified atrial fibrillation HANNY WILSON MD May 02, 2021 13:54
[2021-05-02] MEDS ORDERED: TYLENOL PO PRN (14:00)
[2021-05-02] MEDS: COZAAR PO SCH (14:12)
[2021-05-02] MEDS: LASIX IV SCH (18:46)
[2021-05-02] MEDS: ELIQUIS PO SCH (20:25)
[2021-05-02] MEDS: COREG PO SCH (20:25)
[2021-05-02] MEDS: LIPITOR PO SCH (20:25)
--- NOTE | 2021-05-02 21:22 | PCM.ECHO ---
APPROVED REPORT EXAM: Comprehensive 2D, Doppler, and color-flow Echocardiogram. Patient Location: IN-PATIENT Indications Congestive Heart Failure 2D Dimensions LVOT Diameter 2.06 (1.8-2.4cm) LVEF(%) 45.23 (>50%) M-Mode Dimensions RVDd 2.35 (2.1-3.2cm) Left Atrium(MM) 3.65 (2.5-4.0cm) IVSd 0.95 (0.7-1.1cm) Aortic Root 2.55 (2.2-3.7cm) LVDd 4.45 (4.0-5.6cm) Aortic Cusp Exc 1.75 (1.5-2.0cm) PWd 0.65 (0.7-1.1cm) MV EPSS 0.80 (<0.5cm) IVSs 1.15 cm FS (%) 26.65 % LVDs 3.25 (2.0-3.8cm) ESV(Teich) 43.24 ml PWs 1.10 cm LVEF(%) 52.29 (>50%) Volumes Biplane 2D LV Volumes Biplane 2D LA Volumes LVEDv A4C 43.73 mL LA ESV Index LVESv A4C 23.95 mL Aortic Valve AoV Peak Titi. 1.20 m/s AoV VTI 19.35 cm AO Peak GR. 5.95 mmHg AO Mean GR. 3.15 mmHg LVOT VTI 11.99 cm LVOT Peak Titi. 0.76 m/s KAMERON(VTI)/BSA 2.06 cm2/m2 KAMERON (VTI) 2.06 cm2 AI P 1/2 Time 388.80 ms Mitral Valve MV E Velocity 0.85m/s MR Peak Gr. 58.75mmHg E/A Ratio 0.0 TDI E/Lateral E' 0.0 E/Medial E' 0.0 E/Septal E 0.0 Pulmonary Valve PV Peak Velocity 0.55m/s PV Peak Grad. 1.35mmHg RVOT VTI 6.77cm Tricuspid Valve TR P. Velocity 2.85m/s RAP ESTIMATE 10.00mmHg TR Peak Gr. 33.55mmHg RVSP 43.55mmHg LEFT VENTRICLE Left ventricle is moderately dilated. Left ventricular systolic function is moderately decreased. There is normal left ventricular wall thickness. There is global hypokinesis of the left ventricle. Severe diastolic dysfunction is present (restrictive filling). There is no ventricular septal defect visualized. No left ventricle thrombus noted on this study. LVEF is 40%. RIGHT VENTRICLE The right ventricle is normal size. Right ventricular systolic function is moderately reduced. There is normal right ventricular wall thickness. ATRIA Left atrium is moderately dilated. Right atrium is severely dilated. The interatrial septum is intact with no evidence for an atrial septal defect. AORTIC VALVE The aortic valve is normal in structure. There is no aortic valvular stenosis. Severe aortic regurgitation. There is no aortic valvular vegetation. MITRAL VALVE The mitral valve is normal in structure. There is no mitral valve stenosis. Severe mitral regurgitation. There is no evidence of mitral valve vegetations. TRICUSPID VALVE The tricuspid valve is normal in structure. There is no tricuspid valve stenosis. Severe tricuspid regurgitation. There is no tricuspid valve vegetations. PULMONIC VALVE The pulmonary valve is normal in structure. There is no pulmonic valvular stenosis. There is no pulmonic valvular regurgitation. GREAT VESSELS Aortic root is severely dilated. Pulmonary artery is not well visualized. Aortic arch is not well visualized. IVC is dilated. PERICARDIUM There is no pericardial effusion. There is no pleural effusion. Other Information Study Quality: Fair Further Testing Further Testing : For further evaluation SHAWN is recommended. Recommend CTA Aorta to rule out aortic aneurysym <Conclusion> Left ventricular systolic function is moderately decreased. LVEF is 40%. There is global hypokinesis of the left ventricle. Left ventricle is moderately dilated. Severe diastolic dysfunction is present (restrictive filling). Left atrium is moderately dilated. Right atrium is severely dilated. Severe aortic regurgitation. Severe mitral regurgitation. Severe tricuspid regurgitation. Aortic root is severely dilated. IVC is dilated. Electronically signed by : KATIE KRISHNAN. 05/02/2021 21:21:56
--- NOTE | 2021-05-02 22:47 | DIREP ---
PROCEDURE:CTA CHEST COMPARISON:None. INDICATIONS:Severly Dilated ascending aorta on echo r/o Aortic aneurysm/dissection TECHNIQUE:Post contrast axial images through the chest with multiplanar MIP/3D reconstructions. FINDINGS: PULMONARY ARTERIES:No evidence of pulmonary embolus.. THORACIC AORTA:Suboptimally opacified somewhat limiting evaluation for dissection, no dissection flap is visualized. Aortic root is aneurysmal measuring 5.5 x 5.4 cm. Aortic arch and descending thoracic aorta are ectatic. Extensive contrast mixing artifact seen in the arch and descending thoracic aorta making assessment of the arch and descending thoracic aorta nondiagnostic for dissection. LUNGS:Compressive atelectasis secondary to effusions. PLEURA:Moderate right and small left pleural effusion. CARDIAC:Cardiomegaly. RV:LV ratio (norm <0.9): Not applicable in the absence of pulmonary embolism. MEDIASTINUM:Normal. THYROID:Normal. BONES:Thoracic spondylosis. OTHER:No additional findings. CONCLUSION: 1. 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 2. Suboptimal aortic opacification with contrast, no obvious dissection seen in the ascending aorta, nondiagnostic assessment for dissection in the aortic arch and descending thoracic aorta. 3. Bilateral pleural effusions, moderate on the right. 4. Cardiomegaly. Dictated by: Singh Beatty M.D. on 05/02/2021 at 10:41 PM
[2021-05-03 00:28] VITALS: BP 132/65
--- NOTE | 2021-05-03 02:08 | NUR ---
PT WILL NOT GO TO HEART CATH ON 05/03/21 DUE TO CAT SCAN RESULTS. DR COHN WILL ENTER A NOTE AND CONSULT WITH DR GAMINO IN THE MORNING.
[2021-05-03 04:20] VITALS: BP 133/77
[2021-05-03 05:58] LABS: BASOPHIL # 0.1 10^3/uL (0.0-0.1); BASOPHIL % 0.7 % (0.0-0.2); EOSINOPHIL % 0.6 % (0.0-5.0); LYMPHOCYTES # 1.38 10^3/uL1 (1.0-4.8); LYMPHOCYTES % 20.7 % (24.0-44.0); MEAN CORP HGB 31.7 pg (26-34); MONOCYTES # 0.6 10^3/uL (0.3-0.8); MONOCYTES % 9.1 % (5.0-12.0); NEUTROPHIL # 4.6 10^3/uL (1.8-7.7); NEUTROPHILS % 68.9 % (41.0-85.0); PLATELET COUNT 211 10^3/uL (150-400); RED CELL DISTRIBUTION WIDTH 13.9 % (11.5-14.5)
[2021-05-03 06:13] LABS: CALCIUM 10.7 mg/dL (8.4-10.5); CARBON DIOXIDE 25.5 mmol/L (20.0-32)
--- NOTE | 2021-05-03 06:42 | CNH ---
DATE OF CONSULTATION: 05/02/2021 DICTATOR NAME: KATIE KRISHNAN DO INDICATION: Atrial fibrillation/acute decompensated heart failure. HISTORY OF PRESENT ILLNESS: This is an 89-year-old female who presented to the Emergency Room with progressively worsening shortness of breath for the last 4 days with associated orthopnea and paroxysmal nocturnal dyspnea. Upon presentation to the ED, EKG shows atrial fibrillation with controlled ventricular response. ProBNP was noted to be 4055. A diagnosis of acute decompensated heart failure was made and a consultation was placed to Cardiology Service for evaluation. PAST MEDICAL HISTORY: Significant for: 1. Chronic atrial fibrillation. 2. History of stroke, on oral anticoagulation. 3. Hyperlipidemia. 4. Hypertension. PAST SURGICAL HISTORY: Noncontributory. ALLERGIES: SHE IS ALLERGIC TO PENICILLIN AND CODEINE. MEDICATIONS: 1. She takes at home includes Lipitor 40 mg p.o. at bedtime. 2. Coreg 6.25 mg p.o. b.i.d. 3. Diltiazem 120 mg p.o. daily. 4. Eliquis 2.5 mg p.o. b.i.d. 5. Losartan 100 mg p.o. daily. FAMILY HISTORY: She denies any family history of premature coronary artery disease or sudden cardiac . SOCIAL HISTORY: She denies alcohol use, denies tobacco use, denies illicit drug use. REVIEW OF SYSTEMS: As per HPI and as per previous records. All systems are reviewed and negative for interval change. PHYSICAL EXAMINATION: VITAL SIGNS: Blood pressure is 128/74, respiratory rate is 16, pulse is 76, temperature 98.1, pulse oximetry is 95% on room air. GENERAL: She is in no apparent distress, alert and oriented x 3. HEENT: Normocephalic, atraumatic. Extraocular muscles intact. Pupils equally round, reactive to light and accommodation. CARDIAC: S1, S2. No gallops, murmurs, rubs, or clicks. LUNGS: Clear to auscultation bilaterally. No wheezing, rhonchi or rales. ABDOMEN: Soft, nontender, nondistended. Positive bowel sounds in all four quadrants. No hepatosplenomegaly. EXTREMITIES: No cyanosis, no clubbing, no edema, +2 pedal pulses palpable bilaterally. NEUROLOGIC: No neurological deficits. Sensation is intact. IMPRESSION: 1. Acute decompensated heart failure secondary to systolic and diastolic dysfunction. 2. Chronic atrial fibrillation with controlled ventricular response. 3. Left ventricular ejection fraction of 40%. 4. Severe aortic regurgitation. 5. Severe mitral regurgitation. 6. Severe tricuspid regurgitation. 7. Ascending aortic aneurysm measuring 5.[address] of the chest. 8. Cardiomyopathy. 9. Hypertension. 10. Hyperlipidemia. RECOMMENDATIONS: This is an 89-year-old female who presented to the Emergency Room with progressively worsening shortness of breath with orthopnea, paroxysmal nocturnal dyspnea. She is in acute decompensated heart failure secondary to systolic and diastolic dysfunction. A 2D echo shows a left ventricular ejection fraction of 40% with global hypokinesis of the left ventricle. She is also noted to have multivalvular disease with severe aortic regurgitation, severe mitral regurgitation and severe tricuspid regurgitation. In addition, she was noted to have a severely dilated aortic root on 2D echo. A CTA of the aorta revealed a 5.5 x 5.4 cm ascending aortic aneurysm. 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 It is unclear if the ascending aneurysm is new for her. She certainly would benefit from evaluation by vascular surgeon given this finding. No invasive cardiac workup is necessary at this time. I would recommend that she be transferred to a tertiary institution where she can be evaluated by vascular surgeon given the finding of an aortic aneurysm measuring 5.5 x 5.4 cm. In the meantime, I agree with Coreg 6.25 mg p.o. b.i.d., aspirin 81 mg p.o. daily, and losartan 100 mg p.o. daily. I also recommend strict I's and O's, daily weights, fluid restriction as well as sodium restriction. Eventually, she would benefit from cardiac ischemic workup given her low ejection fraction with severe multivalvular insufficiency. Petr BURCH D.O. DR: KEON/OTIS RUIZD: [id number] RECEIPT: [id number] MTDMarcela
[2021-05-03 07:42] VITALS: BP 128/79
[2021-05-03] MEDS: ASPIRIN EC PO SCH (08:19)
[2021-05-03] MEDS: LASIX IV SCH (08:19)
[2021-05-03] MEDS: PROTONIX PO SCH (08:20)
[2021-05-03] MEDS: ELIQUIS PO SCH ×2 (08:21→21:57)
[2021-05-03] MEDS: COREG PO SCH ×2 (08:21→21:57)
[2021-05-03] MEDS ORDERED: KLOR-CON 10 PO SCH (08:30)
--- NOTE | 2021-05-03 10:44 | DIET.OP ---
Nutrition Asmt/Malnutrit 2-17 Actual Date of Review: May 03, 2021 Nutritional Screening: Malnutr/Diet Consult Diagnosis: CHF, SOB, Afib Pertinent Medical Hx/Surgical: CHF, HTN, HLD, Hx stroke Subjective Information: BLLE edema noted. Receiving diuresis. Wt stated by pt, recommend obtaining current wt. K low, receiving replacement. Good meal intake, will monitor for changes. Skin intact. Unable to speak with pt, current diet order appropriate to meet needs. Current Diet Order/Nutrition S: Cardiac diet Patient /S.O: Cannot Verbalize Diet EDU Pertinent Meds Lasix, lipitor, coreg, cozaar, protonix, KCl Pertinent Labs K 3.2, Glu 112. H. Pylori positive Height (Inches): 63 Current Weight: 115 %IBW: 100 Recent Weight Change: No Weight Status: Appropriate GI Symptoms: None Food Allergies: No Cultural/Ethnic/Muslim Francisca: None stated Usual Diet at Home: Regular BEE in Kcals: Use Current Weight Calories/Kcals/K-30 kcal/kg CBW Kcals Calculated: 2524-9284 kcal/day Protein: Use Current Weight Protein g/k.0-1.3 g/kg CBW Protein Calculated: 52-57 g/day Fluid: ml: 1500 mL or per Nutritional Problem: Nutr. Problems Present Problems: Impaired nutritient utilization (sodium, fluids) Etiology: CHF dx, edema Signs/Symptoms: BLLE edema, SOB, diuresis required RD Comments: Continue current nutrition PoC. Expected Outcomes PO intake >75%. Adequate hydration. Wt stabilization. Labs WNL. Normal Weight %: 90%-110% (Normal) BMI%: 19-24 (Normal) Serum Albumin g/dl: 3.5-5.0 (Normal) Malnutrtion/Nutrition Risk Edu: No RD Follow-Up Date: May 10, 2021 Notificiation Needed?: No KHUSHBOO SORENSON LD - TELE May 03, 2021 10:44
[2021-05-03 11:42] VITALS: BP 110/63
--- NOTE | 2021-05-03 12:11 | PRM.PN ---
Subjective Subjective Date: May 03, 2021 Time: 09:00 Subjective Patient was short of breath earlier this morning but she is feeling better now. I discussed with the patient and patient family including [id number] is being very familiar with her medical condition over the last few years about the echo findings and the CT a of the chest findings regarding aortic root aneurysm and boat outboard engine mechanic recommendations. As per patient and family they are aware of this finding for the last few years and the last time they were told by their boat outboard engine mechanic in [facility] and cardiothoracic surgeon that she is very high risk for any surgical intervention mainly because of her age and it was decided not to pursue it surgically. We attempted to call [facility] in [place] to get CT report that was last done to compare but unfortunately because of the weekend medical records closed. Patient History: FH: breast cancer G8 MOTHER, , Age:98 FH: coronary artery bypass surgery G8 BROTHER 19 CHILD FH: coronary artery disease G8 BROTHER 19 CHILD Hypertension G8 SISTER G8 SISTER No known health problems G8 BROTHER G8 SISTER G8 SISTER 19 CHILD No Family History of: Alzheimer's disease Asthma Cerebrovascular disorder Chronic obstructive pulmonary disease Congestive heart failure Diabetes insipidus Diabetes mellitus Parkinson's disease VTE VTE Risk Total Score: 3 VTE Risk Score VTE Risk: Score 0-1 = Low Risk (Aggressive mobilization; early ambulation; no VTE prophylaxis required) Score 2: Moderate Risk (Intermittent/Pneumatic Compression Device OR Lovenox/Heparin/Coumadin) Score 3-4: High Risk (Intermittent/Pneumatic Compression Device AND Lovenox/Heparin/Coumadin) Score > or =5: Highest Risk (Intermittent/Pneumatic Compression Device AND Lovenox/Heparin/Coumadin) Antico:Hep/LMWH/Coum/Xarelto: Yes Mechanical device ordered: Yes Review of Systems Respiratory: Shortness of breath, SOB with excertion Cardiovascular: No: Chest Pain, Palpitations Gastrointestinal: No: Nausea, Vomiting Allergies: Coded Allergies: Penicillins (Verified Allergy, Unknown, SWELLING, RASH, 03/11/20) codeine (Verified Allergy, Unknown, 03/11/20) Scheduled Apixaban (Eliquis), 2.5 MG PO BID, (Reported) Atorvastatin 40MG (Lipitor 40MG), 1 TAB PO DAILY, (Reported) Carvedilol 6.25MG (Coreg 6.25MG), 1 TAB PO BID, (Reported) Diltiazem Hcl (Diltiazem 24HR Cd), 60 MG PO BID, (Reported) Losartan Potassium (Losartan Potassium), 1 TAB PO DAILY24, (Reported) Magnesium Oxide (Magnesium), 1 TAB PO BID, (Reported) Metoprolol Tartrate 50MG (Lopresser 50MG), 50 MG PO BID, (Reported) Objective Vitals and I/O Vital Sign - Last 24 Hours 05/02/21 05/02/21 05/02/21 05/02/21 12:20 12:39 14:12 17:00 Temp 98.1 98.1 Pulse 89 80 Resp 18 16 B/P (MAP) 131/67 (88) 131/67 133/77 (95) Pulse Ox 95 96 O2 Delivery Room Air Room Air Room Air 05/02/21 05/02/21 05/02/21 05/02/21 20:12 20:25 22:02 22:30 Temp 98.1 Pulse 76 76 Resp 16 B/P (MAP) 128/74 (92) 128/74 Pulse Ox 95 O2 Delivery Room Air Room Air Room Air 05/03/21 05/03/21 05/03/21 05/03/21 00:28 04:20 07:42 08:21 Temp 97.5 97.9 97.3 Pulse 107 96 106 106 Resp 16 16 18 B/P (MAP) 132/65 (87) 133/77 (95) 128/79 (95) 128/79 Pulse Ox 95 95 95 O2 Delivery Vent Room Air 05/03/21 05/03/21 10:19 11:42 Temp 97.5 Pulse 112 Resp 18 B/P (MAP) 110/63 (79) Pulse Ox 94 O2 Delivery Room Air General: Alert, Oriented X3, moderate distress HEENT: Atraumatic, PERRLA Lungs: Other (Few bibasilar crackles) Heart: Other (Irregular irregular) Abdomen: Normal bowel sounds, Soft, No tenderness Extremities: No clubbing, No cyanosis Neuro: Normal gait, Normal speech Psych/Mental Status: Mental status NL, Mood NL All Results(Lab/Rad) Laboratory Tests Test 05/02/21 14:56 05/02/21 19:44 05/03/21 05:30 Troponin I High Sensitivity < 4 ng/L Bedside Glucose 111 White Blood Count 6.7 10^3/uL Red Blood Count 4.19 10^6/uL Hemoglobin 13.3 g/dL Hematocrit 40.3 % Mean Corpuscular Volume 96.2 fL Mean Corpuscular Hemoglobin 31.7 pg Mean Corpuscular Hemoglobin Concent 33.0 g/dL Red Cell Distribution Width 13.9 % Platelet Count 211 10^3/uL Mean Platelet Volume 11.7 fL Neutrophils (%) (Auto) 68.9 % Lymphocytes (%) (Auto) 20.7 % Monocytes (%) (Auto) 9.1 % Neutrophils # (Auto) 4.6 10^3/uL Lymphocytes # (Auto) 1.38 10^3/uL1 Monocytes # (Auto) 0.6 10^3/uL Absolute Immature Granulocyte (auto 0.01 10^3 u/L Absolute Eosinophils (auto) 0.0 10^3/uL Immature Granulocytes % 0.10 % Eosinophils % 0.6 % Basophils % 0.7 % Basophils # 0.1 10^3/uL Sodium Level 140 mmol/L Potassium Level 3.2 mmol/L Chloride Level 105.0 mmol/L Carbon Dioxide Level 25.5 mmol/L Glucose Level 112 mg/dL Blood Urea Nitrogen 14 mg/dL Creatinine 0.83 mg/dL Calcium Level 10.7 mg/dL Anion Gap 12.7 Estimated GFR () 78.5 Est GFR (CKD-EPI)(Non-Afr Yemeni) 64.9 BUN/Creatinine Ratio 16.0 Magnesium Level 1.9 mg/dL Current Medications Medications (Trade) Dose Ordered Sig/Rohan Route PRN Reason Start Time Stop Time Status Last Admin Dose Admin Metoprolol Tartrate (Lopressor) 50 mg STAT STAT PO 05/02/21 10:13 05/02/21 10:15 DC 05/02/21 10:23 Furosemide (Lasix) 40 mg STAT STAT IV 05/02/21 10:13 05/02/21 10:15 DC 05/02/21 10:23 Furosemide (Lasix) 40 mg STK-MED ONCE .ROUTE 05/02/21 10:20 05/02/21 10:21 DC Metoprolol Succinate (Toprol Xl) 50 mg STK-MED ONCE PO 05/02/21 10:20 05/02/21 10:21 DC Metoprolol Tartrate (Lopresser) 25 mg STK-MED ONCE .ROUTE 05/02/21 10:25 05/02/21 10:25 DC Atorvastatin Calcium (Lipitor) 40 mg HS PO 05/02/21 21:00 06/01/21 20:59 05/02/21 20:25 Carvedilol (Coreg) 6.25 mg BID PO 05/02/21 21:00 06/01/21 20:59 05/03/21 08:21 Losartan Potassium (Cozaar) 100 mg DAILY24 PO 05/02/21 14:00 06/01/21 13:59 05/02/21 14:12 Aspirin (Aspirin Ec) 81 mg DAILY PO 05/03/21 09:00 06/02/21 08:59 05/03/21 08:19 Acetaminophen (Tylenol) 325 mg Q4H PRN PO PAIN 1 - 3 05/02/21 14:00 06/01/21 13:59 Pantoprazole Sodium (Protonix) 40 mg DAILY PO 05/03/21 09:00 06/02/21 08:59 05/03/21 08:20 Furosemide (Lasix) 20 mg Q12H IV 05/02/21 19:00 06/01/21 18:59 05/03/21 08:19 Potassium Chloride (Klor-Con 10) 20 meq STAT PO 05/03/21 08:30 06/02/21 08:29 Assessment/Plan Assessment/Plan Assessment/Plan Patient was short of breath earlier this morning but she is feeling better now. I discussed with the patient and patient family including [id number] is being very familiar with her medical condition over the last few years about the echo findings and the CT a of the chest findings regarding aortic root aneurysm and boat outboard engine mechanic recommendations. As per patient and family they are aware of this finding for the last few years and the last time they were told by their boat outboard engine mechanic in [facility] and cardiothoracic surgeon that she is very high risk for any surgical intervention mainly because of her age and it was decided not to pursue it surgically. We attempted to call [facility] in [place] to get CT report that was last done to compare but unfortunately because of the weekend medical records closed. Problems: (1) Acute exacerbation of CHF (congestive heart failure) Status: Acute ICD Code: I50.9 - Heart failure, unspecified SNOMED: 635883365, 58951321407288 (2) Aortic aneurysm ICD Code: I71.9 - Aortic aneurysm of unspecified site, without rupture SNOMED: 44566393 (3) Atrial fibrillation Status: Acute ICD Code: I48.91 - Unspecified atrial fibrillation SNOMED: 60211153 Problem Qualifiers (1) Acute exacerbation of CHF (congestive heart failure): Heart failure type: unspecified Qualified Codes: I50.9 - Heart failure, unspecified (2) Atrial fibrillation: Atrial fibrillation type: unspecified Qualified Codes: I48.91 - Unspecified atrial fibrillation HANNY WILSON MD May 03, 2021 12:10
[2021-05-03] MEDS: COZAAR PO SCH (14:17)
[2021-05-03 15:32] VITALS: BP 106/63
[2021-05-03 19:00] VITALS: BP 106/64
[2021-05-03] MEDS: CARDIZEM PO SCH (21:00)
[2021-05-03] MEDS: LIPITOR PO SCH (21:56)
[2021-05-04 00:10] VITALS: BP 116/64
[2021-05-04 04:00] VITALS: BP 113/51
[2021-05-04 07:57] LABS: CALCIUM 10.2 mg/dL (8.4-10.5); CARBON DIOXIDE 27.5 mmol/L (20.0-32)
[2021-05-04 08:00] VITALS: BP 118/68
[2021-05-04] MEDS: LASIX IV SCH (08:11)
[2021-05-04] MEDS: ASPIRIN EC PO SCH (08:11)
[2021-05-04] MEDS: PROTONIX PO SCH (08:11)
[2021-05-04] MEDS: CARDIZEM PO SCH ×2 (08:11→20:37)
[2021-05-04] MEDS: ELIQUIS PO SCH ×2 (08:12→20:37)
[2021-05-04] MEDS: COREG PO SCH ×2 (08:12→21:00)
[2021-05-04 11:59] VITALS: BP 99/58
[2021-05-04] MEDS: COZAAR PO SCH (14:00)
[2021-05-04 15:53] VITALS: BP 129/59
--- NOTE | 2021-05-04 17:03 | PRM.PN ---
PROGRESS NOTE SUBJECTIVE Had mild lightheadedness today, no chest pain tolerating p.o. intake well, no breathing difficulties OBJECTIVE Vital Signs Date Time Temp Pulse Resp B/P (MAP) Pulse Ox O2 Delivery O2 Flow Rate FiO2 05/04/21 15:53 97.6 106 18 129/59 (82) 97 05/04/21 15:00 Room Air 05/04/21 14:00 99/58 05/04/21 11:59 97.6 83 18 99/58 (72) 95 05/04/21 09:15 Room Air 05/04/21 08:12 94 113/51 05/04/21 08:11 94 113/51 05/04/21 08:00 97.8 101 18 118/68 (85) 96 Room Air General: Awake alert oriented no acute distress HEENT anicteric sclera pupil react light mucous membrane moist neck supple no JVD no carotid bruit, Lungs: Air entry symmetrical no added sound heard Heart S1-S2 heard ,Systolic murmur Present,gallop not appreciated Abdomen soft nontender bowel sounds present no organomegaly noted Extremities no edema no calf tenderness FLAME CUTTER awake alert oriented Psych: Normal mood insight and affect Laboratory Tests Test 05/02/21 07:10 05/02/21 07:39 05/02/21 14:56 05/02/21 19:44 White Blood Count 5.4 10^3/uL (4.5-11.0) Red Blood Count 4.20 10^6/uL (4.00-5.20) Hemoglobin 13.1 g/dL (12.0-15.0) Hematocrit 41.4 % (36.0-46.0) Mean Corpuscular Volume 98.6 fL (78-100) Mean Corpuscular Hemoglobin 31.2 pg (26-34) Mean Corpuscular Hemoglobin Concent 31.6 g/dL (33-36.5) Red Cell Distribution Width 14.1 % (11.5-14.5) Platelet Count 201 10^3/uL (150-400) Mean Platelet Volume 12.3 fL (7.8-11.0) Neutrophils (%) (Auto) 73.0 % (41.0-85.0) Lymphocytes (%) (Auto) 17.9 % (24.0-44.0) Monocytes (%) (Auto) 6.9 % (5.0-12.0) Neutrophils # (Auto) 3.9 10^3/uL (1.8-7.7) Lymphocytes # (Auto) 0.96 10^3/uL1 (1.0-4.8) Monocytes # (Auto) 0.4 10^3/uL (0.3-0.8) Absolute Immature Granulocyte (auto 0.01 10^3 u/L (0-2) Absolute Eosinophils (auto) 0.1 10^3/uL (0.0-0.2) Immature Granulocytes % 0.20 % (0.00-0.50) Eosinophils % 1.3 % (0.0-5.0) Basophils % 0.7 % (0.0-0.2) Basophils # 0.0 10^3/uL (0.0-0.1) Prothrombin Time 10.9 SEC (9.6-12.0) Prothrombin Time INR (Non-Therap) 1.0 Activated Partial Thromboplast Time 20.5 SEC (24.67-30.72) D-Dimer 0.48 mg/L (0.19-0.49) Sodium Level 142 mmol/L (132-145) Potassium Level 4.9 mmol/L (3.6-5.2) Chloride Level 108.0 mmol/L (96-109) Carbon Dioxide Level 23.2 mmol/L (20.0-32) Anion Gap 15.7 Blood Urea Nitrogen 14 mg/dL (7-18) Creatinine 0.77 mg/dL (0.59-1.40) Estimated GFR () 85.6 (>/=60) Est GFR (CKD-EPI)(Non-Afr Nigerien) 70.7 (>/=60) BUN/Creatinine Ratio 18.0 Glucose Level 126 mg/dL (70-110) Calcium Level 10.5 mg/dL (8.4-10.5) Total Bilirubin 1.3 mg/dL (0.2-1.0) Aspartate Amino Transf (AST/SGOT) 56 U/L (0-35) Alanine Aminotransferase (ALT/SGPT) 61 U/L (12-78) Alkaline Phosphatase 113 U/L (50-136) Total Creatine Kinase 61 U/L (26-192) Creatine Kinase MB 0.5 ng/mL (0.5-3.6) Troponin I High Sensitivity < 4 ng/L (0-50) < 4 ng/L (0-50) Pro-B-Type Natriuretic Peptide 4055 pg/mL (0-450) Total Protein 6.2 g/dL (6.4-8.2) Albumin 3.4 g/dL (3.4-5.0) Globulin 2.8 Albumin/Globulin Ratio 1.214 Helicobacter pylori Screen POSITIVE (NEGATIVE) SARS-CoV-2 Antigen (Rapid) NEGATIVE (NEGATIVE) Bedside Glucose 111 (70 - 110) Test 05/03/21 05:30 05/04/21 07:30 White Blood Count 6.7 10^3/uL (4.5-11.0) Red Blood Count 4.19 10^6/uL (4.00-5.20) Hemoglobin 13.3 g/dL (12.0-15.0) Hematocrit 40.3 % (36.0-46.0) Mean Corpuscular Volume 96.2 fL (78-100) Mean Corpuscular Hemoglobin 31.7 pg (26-34) Mean Corpuscular Hemoglobin Concent 33.0 g/dL (33-36.5) Red Cell Distribution Width 13.9 % (11.5-14.5) Platelet Count 211 10^3/uL (150-400) Mean Platelet Volume 11.7 fL (7.8-11.0) Neutrophils (%) (Auto) 68.9 % (41.0-85.0) Lymphocytes (%) (Auto) 20.7 % (24.0-44.0) Monocytes (%) (Auto) 9.1 % (5.0-12.0) Neutrophils # (Auto) 4.6 10^3/uL (1.8-7.7) Lymphocytes # (Auto) 1.38 10^3/uL1 (1.0-4.8) Monocytes # (Auto) 0.6 10^3/uL (0.3-0.8) Absolute Immature Granulocyte (auto 0.01 10^3 u/L (0-2) Absolute Eosinophils (auto) 0.0 10^3/uL (0.0-0.2) Immature Granulocytes % 0.10 % (0.00-0.50) Eosinophils % 0.6 % (0.0-5.0) Basophils % 0.7 % (0.0-0.2) Basophils # 0.1 10^3/uL (0.0-0.1) Sodium Level 140 mmol/L (132-145) 142 mmol/L (132-145) Potassium Level 3.2 mmol/L (3.6-5.2) 3.5 mmol/L (3.6-5.2) Chloride Level 105.0 mmol/L (96-109) 106.0 mmol/L (96-109) Carbon Dioxide Level 25.5 mmol/L (20.0-32) 27.5 mmol/L (20.0-32) Glucose Level 112 mg/dL (70-110) 102 mg/dL (70-110) Blood Urea Nitrogen 14 mg/dL (7-18) 18 mg/dL (7-18) Creatinine 0.83 mg/dL (0.59-1.40) 0.97 mg/dL (0.59-1.40) Calcium Level 10.7 mg/dL (8.4-10.5) 10.2 mg/dL (8.4-10.5) Anion Gap 12.7 12.0 Estimated GFR () 78.5 (>/=60) 65.6 (>/=60) Est GFR (CKD-EPI)(Non-Afr Nigerien) 64.9 (>/=60) 54.2 (>/=60) BUN/Creatinine Ratio 16.0 18.0 Magnesium Level 1.9 mg/dL (1.8-2.4) CONCLUSION: 1. 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 2. Suboptimal aortic opacification with contrast, no obvious dissection seen in the ascending aorta, nondiagnostic assessment for dissection in the aortic arch and descending thoracic aorta. 3. Bilateral pleural effusions, moderate on the right. 4. Cardiomegaly. 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
[2021-05-04] MEDS ORDERED: KLOR-CON 10 PO SCH (17:30)
[2021-05-04 19:00] VITALS: BP 98/50
[2021-05-04] MEDS: LIPITOR PO SCH (20:37)
[2021-05-05 00:25] VITALS: BP 104/56
[2021-05-05 05:42] LABS: CALCIUM 9.8 mg/dL (8.4-10.5); CARBON DIOXIDE 27.2 mmol/L (20.0-32)
[2021-05-05 05:51] VITALS: BP 118/63
[2021-05-05 08:27] VITALS: BP 115/65
[2021-05-05] MEDS: ASPIRIN EC PO SCH (09:55)
[2021-05-05] MEDS: COREG PO SCH (09:55)
[2021-05-05] MEDS: ELIQUIS PO SCH (09:55)
[2021-05-05] MEDS: PROTONIX PO SCH (09:55)
[2021-05-05] MEDS: LASIX IV SCH (09:55)
[2021-05-05] MEDS: CARDIZEM PO SCH (09:56)
--- NOTE | 2021-05-05 11:56 | NUR ---
DISCHARGE PLAN CM VISITED WITH PATIENT REGARDING D/C PLANNING AND NEEDS. PATIENT IS VERY IND OF ADLS AND LIVES AT HOME WITH HER SPOUSE WHO IS VERY SUPPORTIVE. SHE DOES NOT USE DME IN THE HOME. PATIENT IS PLACED ON XFERRAL BY [facility] RN FOR TRANSFER TO HIGHER LEVEL OF CARE FOR AORTIC ANEURYSM. PATIENT IS AWARE OF PLAN. CM WILL CONTINUE TO FOLLOW FOR D/C PLANNING NEEDS.
[2021-05-05 12:24] VITALS: BP 112/61
[2021-05-05] MEDS ORDERED: FURO10VI IV (13:56)
[2021-05-05] MEDS ORDERED: PANT40TA3 PO (13:56)
[2021-05-05] MEDS ORDERED: POTA-129 PO (13:56)
[2021-05-05] MEDS ORDERED: ACET325T12 PO (13:56)
--- NOTE | 2021-05-05 14:05 | PRM.DC ---
Subjective Subjective Date of Discharge: May 05, 2021 Time of Request to Discharge: 13:57 Subjective Feeling better shortness of breath has improved no chest pain tolerating p.o. intake well Patient History: FH: breast cancer G8 MOTHER, , Age:98 FH: coronary artery bypass surgery G8 BROTHER 19 CHILD FH: coronary artery disease G8 BROTHER 19 CHILD Hypertension G8 SISTER G8 SISTER No known health problems G8 BROTHER G8 SISTER G8 SISTER 19 CHILD No Family History of: Alzheimer's disease Asthma Cerebrovascular disorder Chronic obstructive pulmonary disease Congestive heart failure Diabetes insipidus Diabetes mellitus Parkinson's disease Exam Vital Signs Vital Signs Date Time Temp Pulse Resp B/P (MAP) Pulse Ox O2 Delivery O2 Flow Rate FiO2 05/05/21 12:24 97.9 104 18 112/61 (78) 98 05/05/21 08:49 Room Air HEENT anicteric sclera pupil react light no JVD noted no carotid bruit appreciated Lungs bilateral air entry symmetrical few basal Rales present bilaterally no wheezes heard Heart irregular rhythm S1-S2 heard , Systolic Murmur 2/6 Noted in the apex Abdomen soft nontender bowel sounds present no organomegaly or masses felt Extremities move all 4 extremities no calf tenderness no edema noted [employer]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 moist/pink Respiratory: Other (Basal Rales bilaterally present) Cardiovascular: Normal S1, Other (Systolic murmur, irregular rhythm) Abdominal: Normal bowel sounds, Soft, No tenderness, No hepatospenomegaly Extremities: No cyanosis, No edema Skin: No breakdown Neuro: Normal gait, Normal speech, Strength at 5/5 X4 ext, Cranial nerves 3-12 NL Psych/Mental Status: Mental status NL, Mood NL VTE VTE Risk Total Score: 3 VTE Risk Score VTE Risk: Score 0-1 = Low Risk (Aggressive mobilization; early ambulation; no VTE prophylaxis required) Score 2: Moderate Risk (Intermittent/Pneumatic Compression Device OR Lovenox/Heparin/Coumadin) Score 3-4: High Risk (Intermittent/Pneumatic Compression Device AND Lovenox/Heparin/Coumadin) Score > or =5: Highest Risk (Intermittent/Pneumatic Compression Device AND Lovenox/Heparin/Coumadin) Antico:Hep/LMWH/Coum/Xarelto: Yes Mechanical device ordered: Yes Objective Vitals and I/O Vital Sign - Last 24 Hours 05/04/21 05/04/21 05/04/21 05/04/21 14:00 15:00 15:53 19:00 Temp 97.6 97.5 Pulse 106 105 Resp 18 19 B/P (MAP) 99/58 129/59 (82) 98/50 (66) Pulse Ox 97 98 O2 Delivery Room Air 05/04/21 05/04/21 05/04/21 05/05/21 20:37 21:00 22:00 00:25 Temp 98.1 Pulse 106 105 84 Resp 18 B/P (MAP) 129/59 98/50 104/56 (72) Pulse Ox 96 O2 Delivery Room Air 05/05/21 05/05/21 05/05/21 05/05/21 05:51 08:27 08:49 09:55 Temp 97.6 97.9 Pulse 94 87 87 Resp 17 18 B/P (MAP) 118/63 (81) 115/65 (82) 115/65 Pulse Ox 95 97 O2 Delivery Room Air 05/05/21 05/05/21 09:56 12:24 Temp 97.9 Pulse 87 104 Resp 18 B/P (MAP) 115/65 112/61 (78) Pulse Ox 98 Intake and Output 05/05/21 07:00 Intake Total 480 ml Output Total 900 ml Balance -420 ml General: Alert, Oriented X3, moderate distress HEENT: Atraumatic, PERRLA Lungs: Other (Few bibasilar crackles) Heart: Other (Irregular irregular) Abdomen: Normal bowel sounds, Soft, No tenderness Extremities: No clubbing, No cyanosis Neuro: Normal gait, Normal speech Psych/Mental Status: Mental status NL, Mood NL All Results(Lab/Rad) Laboratory Tests Test 05/02/21 14:56 05/02/21 19:44 05/03/21 05:30 Troponin I High Sensitivity < 4 ng/L Bedside Glucose 111 White Blood Count 6.7 10^3/uL Red Blood Count 4.19 10^6/uL Hemoglobin 13.3 g/dL Hematocrit 40.3 % Mean Corpuscular Volume 96.2 fL Mean Corpuscular Hemoglobin 31.7 pg Mean Corpuscular Hemoglobin Concent 33.0 g/dL Red Cell Distribution Width 13.9 % Platelet Count 211 10^3/uL Mean Platelet Volume 11.7 fL Neutrophils (%) (Auto) 68.9 % Lymphocytes (%) (Auto) 20.7 % Monocytes (%) (Auto) 9.1 % Neutrophils # (Auto) 4.6 10^3/uL Lymphocytes # (Auto) 1.38 10^3/uL1 Monocytes # (Auto) 0.6 10^3/uL Absolute Immature Granulocyte (auto 0.01 10^3 u/L Absolute Eosinophils (auto) 0.0 10^3/uL Immature Granulocytes % 0.10 % Eosinophils % 0.6 % Basophils % 0.7 % Basophils # 0.1 10^3/uL Sodium Level 140 mmol/L Potassium Level 3.2 mmol/L Chloride Level 105.0 mmol/L Carbon Dioxide Level 25.5 mmol/L Glucose Level 112 mg/dL Blood Urea Nitrogen 14 mg/dL Creatinine 0.83 mg/dL Calcium Level 10.7 mg/dL Anion Gap 12.7 Estimated GFR () 78.5 Est GFR (CKD-EPI)(Non-Afr Kenyan) 64.9 BUN/Creatinine Ratio 16.0 Magnesium Level 1.9 mg/dL Current Medications Medications (Trade) Dose Ordered Sig/Rohan Route PRN Reason Start Time Stop Time Status Last Admin Dose Admin Metoprolol Tartrate (Lopressor) 50 mg STAT STAT PO 05/02/21 10:13 05/02/21 10:15 DC 05/02/21 10:23 Furosemide (Lasix) 40 mg STAT STAT IV 05/02/21 10:13 05/02/21 10:15 DC 05/02/21 10:23 Furosemide (Lasix) 40 mg STK-MED ONCE .ROUTE 05/02/21 10:20 05/02/21 10:21 DC Metoprolol Succinate (Toprol Xl) 50 mg STK-MED ONCE PO 05/02/21 10:20 05/02/21 10:21 DC Metoprolol Tartrate (Lopresser) 25 mg STK-MED ONCE .ROUTE 05/02/21 10:25 05/02/21 10:25 DC Atorvastatin Calcium (Lipitor) 40 mg HS PO 05/02/21 21:00 06/01/21 20:59 05/02/21 20:25 Carvedilol (Coreg) 6.25 mg BID PO 05/02/21 21:00 06/01/21 20:59 05/03/21 08:21 Losartan Potassium (Cozaar) 100 mg DAILY24 PO 05/02/21 14:00 06/01/21 13:59 05/02/21 14:12 Aspirin (Aspirin Ec) 81 mg DAILY PO 05/03/21 09:00 06/02/21 08:59 05/03/21 08:19 Acetaminophen (Tylenol) 325 mg Q4H PRN PO PAIN 1 - 3 05/02/21 14:00 06/01/21 13:59 Pantoprazole Sodium (Protonix) 40 mg DAILY PO 05/03/21 09:00 06/02/21 08:59 05/03/21 08:20 Furosemide (Lasix) 20 mg Q12H IV 05/02/21 19:00 06/01/21 18:59 05/03/21 08:19 Potassium Chloride (Klor-Con 10) 20 meq STAT PO 05/03/21 08:30 06/02/21 08:29 Medication Reconciliation Scheduled Apixaban (Eliquis), 2.5 MG PO BID, (Reported) Atorvastatin 40MG (Lipitor 40MG), 1 TAB PO DAILY, (Reported) Carvedilol 6.25MG (Coreg 6.25MG), 1 TAB PO BID, (Reported) Diltiazem Hcl (Diltiazem 24HR Cd), 60 MG PO BID, (Reported) Furosemide (Furosemide), 20 MG IV DAILY Losartan Potassium (Losartan Potassium), 1 TAB PO DAILY24, (Reported) Magnesium Oxide (Magnesium), 1 TAB PO BID, (Reported) Metoprolol Tartrate 50MG (Lopresser 50MG), 50 MG PO BID, (Reported) Pantoprazole Sodium (Protonix), 40 MG PO DAILY Potassium Chloride (Klor-Con 10), 20 MEQ PO STAT Scheduled PRN Acetaminophen (Tylenol), 325 MG PO Q4H PRN for PAIN 1 - 3 Plan Assessment Ascending aortic aneurysm 5.5 cm rapidly growing, Atrial fibrillation suboptimally controlled rate Congestive heart failure EF 40%, chronic diastolic congestive heart failure With acute exacerbation improved Hypertension Hypercholesterolemia Plan My Orders - PRASANNA GIPSON MD Procedure Category Date Status Time Potassium Chloride PHA 05/04/21 Complete (Klor-Con 10) 17:30 Basic Metabolic Panel LAB 05/05/21 Complete 05:00 Phosphorus LAB 05/05/21 Complete 05:00 Magnesium LAB 05/05/21 Complete 05:00 Discharge DISCHARGE 05/05/21 Transmitted 13:49 Patient will be transferred to [facility] in [place] for cardiothoracic surgical evaluation for ascending aortic repair and further management will be transferred to accepting physician PRASANNA GIPSON MD May 05, 2021 14:05
[2021-05-05] MEDS: COZAAR PO SCH (14:21)
[2021-05-05 14:45] VITALS: BP 112/61
--- NOTE | 2021-05-05 14:45 | NUR ---
TRANSFER DISCHARGE INSTRUCTIONS GIVEN TO EMS, PT TO BE TRANSFERRED TO [facility] IN [place] BY EMS SERVICE TRANSFERRED TO [facility]
== END 2021-05-05 14:45 | disposition short-term general hospital (02) | DRG 291 ==
LOC: ER 06:16 → OBSVTOIN 10:53 → INTOOBSV 10:53 → UNDOADMOB 10:53 → MS 10:53 → EDPENDDISTM 05-05 14:45 → EDPENDDISDT 05-05 14:45
PROVIDERS: ADMIT Internal Medicine; ATTEND Internal Medicine
DX: I11.0 Hypertensive heart disease with heart failure (principal); I50.43 Acute on chronic combined systolic (congestive) and diastolic (congestive) heart failure; I48.20 Chronic atrial fibrillation, unspecified; I43 Cardiomyopathy in diseases classified elsewhere; I08.3 Combined rheumatic disorders of mitral, aortic and tricuspid valves; Z20.822 Contact with and (suspected) exposure to COVID-19; E78.5 Hyperlipidemia, unspecified; E78.00 Pure hypercholesterolemia, unspecified; I71.2 Thoracic aortic aneurysm, without rupture; Z80.3 Family history of malignant neoplasm of breast; Z79.01 Long term (current) use of anticoagulants; Z82.49 Family history of ischemic heart disease and other diseases of the circulatory system; Z86.73 Personal history of transient ischemic attack (TIA), and cerebral infarction without residual deficits; Z95.1 Presence of aortocoronary bypass graft; Z88.0 Allergy status to penicillin; Z79.899 Other long term (current) drug therapy
CPT/HCPCS: 36415; 71045; 71275; 80048; 80053; 82550; 82553; 82948; 83735; 83880; 84100; 84484; 85025; 85379; 85610; 85730; 86677; 87426; 93005; 93306; 99285; G0378; J1940; J3490; Q9965

== ENCOUNTER 2021-05-16 09:05 | Emergency (ER) | payer MEDICARE ==
[~2021-05-16] VITALS: Ht 154.9 cm; Wt 52.2 kg
[2021-05-16 09:05] VITALS: BP 137/76
[~2021-05-16 09:05] MED LIST changes: +ACET325T12 PO; +APIX2.5T PO; +ATOR40TA PO; +CARV6.25 PO; +DILT120C30 PO; +FURO10VI IV; +MAGN400T36 PO; +PANT40TA3 PO; +POTA-129 PO
[2021-05-16 09:10] VITALS: BP 137/76
--- NOTE | 2021-05-16 09:36 | ER.PDOC ---
General Chief Complaint: Dyspnea/Respdistress Stated Complaint: CHEST TIGHTNESS Time seen by MD: 09:23 Source: patient Exam Limitations: no limitations History of Present Illness Initial Comments This is an 89-year-old female who comes to the emergency department complaining of chest tightness. She states she started to have pain at 3:30 AM this morning. She does have associated shortness of breath but no nausea or diaphoresis. She does have a history of coronary artery disease, and aortic aneurysm, hypertension and atrial fibrillation. She is taking Eliquis for the atrial fibrillation. Radiation: no radiation Activities at Onset: none Modifying Factors: other (Nothing worsens or improves the pain.) Nitro Today/Relief: No Nitro Taken Today Allergies: Coded Allergies: Penicillins (Verified Allergy, Unknown, SWELLING, RASH, 03/11/20) codeine (Verified Allergy, Unknown, 03/11/20) Home Meds Active Scripts Pantoprazole Sodium (PROTONIX) 40 Mg Tablet.dr, 40 MG PO DAILY for 1 Day Prov:PRASANNA GIPSON MD 05/05/21 Potassium Chloride (KLOR-CON 10) 10 Meq Tablet.er, 20 MEQ PO STAT for 1 Day Prov:PRASANNA GIPSON MD 05/05/21 Furosemide (FUROSEMIDE) 10 Mg/1 Ml Vial, 20 MG IV DAILY for 1 Day, VIAL Prov:PRASANNA GIPSON MD 05/05/21 Acetaminophen (TYLENOL) 325 Mg Tablet, 325 MG PO Q4H PRN for PAIN 1 - 3 for 1 Day, TAB Prov:PARSANNA GIPSON MD 05/05/21 Reported Medications Magnesium Oxide (Magnesium) 400 Mg Tablet, 1 TAB PO BID for 30 Days, #60 TAB 0 Refills NEEDED 05/02/21 Atorvastatin 40MG (LIPITOR 40MG) 40 Mg Tablet, 1 TAB PO DAILY, #30 TAB 5 Refills 05/02/21 Carvedilol 6.25MG (COREG 6.25MG) 6.25 Mg Tablet, 1 TAB PO BID, #180 TAB 1 Refill 05/02/21 Diltiazem Hcl (DILTIAZEM 24HR CD) 120 Mg Cap.er.24h, 60 MG PO BID, CAPSULE 05/02/21 Apixaban (Eliquis) 2.5 Mg Tablet, 2.5 MG PO BID, TABLET 05/02/21 Losartan Potassium (LOSARTAN POTASSIUM) 100 Mg Tablet, 1 TAB PO DAILY24, #30 TAB 5 Refills 03/11/20 Past Medical History Medical History: arrhythmia, congestive heart failure, hypertension Surgical History: no surgical history Social History Alcohol Use: none Drug Use: none Constitutional: denies no symptoms reported, denies see HPI, denies chills, denies diaphoresis, denies fever, denies malaise, denies weakness, denies other EENTM: denies no symptoms reported, denies see HPI, denies eye pain, denies blurred vision, denies tearing, denies double vision, denies ear pain, denies ear discharge, denies nose pain, denies nose congestion, denies throat pain, denies throat swelling, denies mouth pain, denies mouth swelling, denies other Respiratory: denies no symptoms reported, denies see HPI, denies cough, denies orthopnea; shortness of breath; denies SOB with exertion, denies SOB at rest, denies stridor, denies wheezing, denies other Cardiovascular: denies no symptoms reported, denies see HPI; chest pain; denies edema, denies irregular heart rate, denies lightheadedness, denies palpitations, denies syncope, denies other Gastrointestinal: denies no symptoms reported, denies see HPI, denies abdomen distended, denies abdominal pain, denies blood streaked bowels, denies constipated, denies diarrhea, denies difficulty swallowing, denies nausea, denies poor appetite, denies poor fluid intake, denies rectal bleeding, denies vomiting, denies other Genitourinary: denies no symptoms reported, denies see HPI, denies burning, denies dysuria, denies discharge, denies frequency, denies flank pain, denies hematuria, denies incontinence, denies pain, denies urgency, denies other Musculoskeletal: denies no symptoms reported, denies see HPI, denies back pain, denies gout, denies joint pain, denies joint swelling, denies muscle pain, denies muscle stiffness, denies neck pain, denies other Skin: denies no symptoms reported, denies see HPI, denies change in color, denies change in hair/nails, denies dryness, denies lesions, denies lumps, fran es rash, denies other Psychiatric/Neurological: denies no symptoms reported, denies see HPI, denies anxiety, denies depressed, denies emotional problems, denies headache, denies numbness, denies paresthesia, denies pre-existing deficit, denies seizure, denies tingling, denies tremors, denies weakness, denies other Endocrine: denies no symptoms reported, denies see HPI, denies excessive sweating, denies flushing, denies intolerance to cold, denies intolerance to he at, denies increased hunger, denies increased thrist, denies increased urine, denies unexplained weight gain, denies unexplaned weight loss, denies other Hematologic/Lymphatic: denies no symptoms reported, denies see HPI, denies anemia, denies blood clots, denies easy bleeding, denies easy bruising, denies swollen glands, denies other All Other Systems: Reviewed and Negative Physical Exam General Appearance: No Apparent Distress, WD/WN HEENT: PERRL/EOMI, Normal ENT Inspection, TMs Normal, Pharynx Normal Neck: Non-Tender, Full Range of Motion, Supple, Normal Inspection Respiratory: chest non-tender, lungs clear, normal breath sounds, no respiratory distress, no accessory muscle use Cardiovascular: Normal Peripheral Pulses, Regular Rate, Rhythm, No Edema, No Gallop, No JVD, No Murmur Gastrointestinal: Normal Bowel Sounds, No Organomegaly, No Pulsatile Mass, Non Tender, Soft Rectal: Normal Exam Extremities: Normal Range of Motion, Non-Tender, Normal Inspection, No Pedal Edema, No Calf Tenderness, Normal Capillary Refill Neurologic/Psychiatric: surface plate inspector II-XII NML as Tested, No Motor/Sensory Deficits, Alert, Normal Mood/Affect, Oriented x 3 Skin: Normal Color, Warm/Dry Lymphatic: No Adenopathy Results/Orders Results/Orders Orders - CAMDEN LUNDBERG MD Cbc With Auto Diff (05/16/21 09:28) Comprehensive Metabolic Panel (05/16/21 09:28) Probnp B-Type Desk Representative (05/16/21 09:28) Xr Chest 1v (05/16/21 09:28) PT (05/16/21 09:28) Partial Thromboplastin Time. (05/16/21 09:28) Ekg-Routine (05/16/21 09:28) Troponin I High Sensitivity (05/16/21 09:28) Vital Signs Date Time Temp Pulse Resp B/P (MAP) Pulse Ox O2 Delivery O2 Flow Rate FiO2 05/16/21 09:10 97.8 90 18 137/76 (96) 97 Room Air 05/16/21 09:05 97.8 90 18 97 05/16/21 09:05 97.8 90 18 Progress Progress FINDINGS: LUNGS/PLEURA:Increased interstitial markings are again seen throughout both lungs with patchy infiltrate or subsegmental atelectasis in the right base and small bilateral pleural effusions. VASCULATURE:Tortuosity and ectasia of the thoracic aorta is again noted. CARDIAC:Heart size is mildly enlarged. MEDIASTINUM:Normal. No visible mass or adenopathy. BONES:Normal. No fracture or visible bony lesion. OTHER:Negative. CONCLUSION:Mild cardiomegaly with diffuse bilateral interstitial thickening with patchy infiltrate and/or subsegmental atelectasis again seen in the right base and small bilateral pleural effusions. The thoracic aorta is tortuous and ectatic as on prior study. Dictated by: Michael Randall M.D. on 05/16/2021 at 10:02 AM ER DEPART Departure Time of Disposition: 10:37 Disposition: 01 HOME / SELF CARE / HOMELESS Impression: Primary Impression: Pneumonia Additional Impression: Chest pain Condition: Stable Patient Instructions: Chest Pain (Nonspecific) Referrals: SARAI MOJICA CHANNEL ACCOUNT MANAGER (PCP) PRIMARY CARE PROVIDER Additional Instructions: Take your antibiotics until they are gone. Return to the emergency department if your symptoms worsen in any way. Comments Prescription for azithromycin Duration or Time Spent with Pa: Unknown Problem Qualifiers Primary Impression: Pneumonia Pneumonia type: due to unspecified organism Laterality: unspecified laterality Lung location: unspecified part of lung Qualified Codes: J18.9 - Pneumonia, unspecified organism Additional Impression: Chest pain Chest pain type: unspecified Qualified Codes: R07.9 - Chest pain, unspecified CAMDEN LUNDBERG MD May 16, 2021 09:36
[2021-05-16 09:46] LABS: BASOPHIL % 0.6 % (0.0-0.2); EOSINOPHIL # 0.1 10^3/uL (0.0-0.2); EOSINOPHIL % 0.9 % (0.0-5.0); LYMPHOCYTES # 1.01 10^3/uL1 (1.0-4.8); LYMPHOCYTES % 14.5 % (24.0-44.0); MEAN CORP HGB 31.1 pg (26-34); MONOCYTES # 0.6 10^3/uL (0.3-0.8); MONOCYTES % 8.2 % (5.0-12.0); NEUTROPHIL # 5.3 10^3/uL (1.8-7.7); NEUTROPHILS % 75.7 % (41.0-85.0); PLATELET COUNT 214 10^3/uL (150-400); RED CELL DISTRIBUTION WIDTH 14.3 % (11.5-14.5)
--- NOTE | 2021-05-16 10:06 | DIREP ---
PROCEDURE:CHEST 1 VIEW COMPARISON:[facility], CR, XRAY CHEST SINGLE VW, 05/02/2021, 07:35 AM. INDICATIONS:Chest pain FINDINGS: LUNGS/PLEURA:Increased interstitial markings are again seen throughout both lungs with patchy infiltrate or subsegmental atelectasis in the right base and small bilateral pleural effusions. VASCULATURE:Tortuosity and ectasia of the thoracic aorta is again noted. CARDIAC:Heart size is mildly enlarged. MEDIASTINUM:Normal. No visible mass or adenopathy. BONES:Normal. No fracture or visible bony lesion. OTHER:Negative. CONCLUSION:Mild cardiomegaly with diffuse bilateral interstitial thickening with patchy infiltrate and/or subsegmental atelectasis again seen in the right base and small bilateral pleural effusions. The thoracic aorta is tortuous and ectatic as on prior study. Dictated by: Michael Randall M.D. on 05/16/2021 at 10:02 AM
[2021-05-16 10:10] LABS: CARBON DIOXIDE 23.8 mmol/L (20.0-32)
--- NOTE | 2021-05-16 11:00 | NUR ---
iv 20G IV REMOVED FROM R ARM CATHETER INTACT.
--- NOTE | 2021-05-16 11:06 | PCM.EKG ---
[facility] Test Date: 2021-05-16 Test Time: 11:05:26 Pat Name: KENA MCCOY [facility]: [id number] Room: Gender: F Tape Keller Operator: ERICA : 1930 Requested By: CAMDEN FROST Order Number: [id number] Reading MD: Camden Frost Measurements Intervals [place] Rate: 86 P: MT: QRS: 22 QRSD: 145 T: 171 QT: 380 QTc: 455 Interpretive Statements Atrial fibrillation Left bundle branch block Compared to ECG 05/02/2021 06:44:35 Left bundle-branch block now present Intraventricular conduction delay no longer present T-wave abnormality no longer present Electronically Signed On 05-16-2021 16:52:16 GROUND WOOD SUPERVISOR by Camden Frost Please click the below link to view image of tracing.
== END 2021-05-16 11:03 | disposition home or self-care (01) ==
LOC: ER 09:05
DX: J18.9 Pneumonia, unspecified organism (principal); I11.0 Hypertensive heart disease with heart failure; I50.9 Heart failure, unspecified; I25.10 Atherosclerotic heart disease of native coronary artery without angina pectoris; I48.91 Unspecified atrial fibrillation; Z79.01 Long term (current) use of anticoagulants; Z79.899 Other long term (current) drug therapy; Z88.0 Allergy status to penicillin; Z88.5 Allergy status to narcotic agent
CPT/HCPCS: 36415; 71045; 80053; 83880; 84484; 85025; 85610; 85730; 93005; 99285

== ENCOUNTER 2021-05-20 07:14 | Emergency (ER) | payer MEDICARE ==
[~2021-05-20] VITALS: Ht 167.6 cm; Wt 52.2 kg
[2021-05-20 07:24] VITALS: BP 137/63
--- NOTE | 2021-05-20 07:29 | NUR ---
ARRIVAL PATIENT ARRIVED TO ED3 AMBULATORY, C/O CHEST PRESSURE TODAY, WAS RECENTLY DIAGNOSED WITH PNEUMONIA AND CURRENTLY ON ANTIBIOTICS, DOES HAVE AN APPT WITH DOCTOR FRENCH TODAY, AUTOMATION ENGINEER APPLIED AND VITAL SIGNS OBTAINED, DOCTOR TOÑO TO THE ROOM TO SEE PATIENT.
[2021-05-20] MEDS ORDERED: ASPIRIN PO PRN (07:30)
--- NOTE | 2021-05-20 07:34 | ER.PDOC ---
General Chief Complaint: Chest Pain-Cardiac Nature Stated Complaint: CHEST PAIN Time seen by MD: 07:33 Source: patient Exam Limitations: no limitations History of Present Illness Initial Comments This is an 89-year-old female comes to the emergency department with chest pressure that started at 4:30 AM this morning. She states that she was seen by her primary doctor yesterday for checkup and has an appointment with Dr. Vences, cardiology at 11:00 this morning. She denies any shortness of breath, no nausea and no diaphoresis. She was sleeping when this occurred. Radiation: no radiation Activities at Onset: none Nitro Today/Relief: No Nitro Taken Today Aspirin Today: No Aspirin Today Allergies: Coded Allergies: Penicillins (Verified Allergy, Unknown, SWELLING, RASH, 03/11/20) codeine (Verified Allergy, Unknown, 03/11/20) Home Meds Active Scripts Pantoprazole Sodium (PROTONIX) 40 Mg Tablet.dr, 40 MG PO DAILY for 1 Day Prov:PRASANNA GIPSON MD 05/05/21 Potassium Chloride (KLOR-CON 10) 10 Meq Tablet.er, 20 MEQ PO STAT for 1 Day Prov:PRASANNA GIPSON MD 05/05/21 Furosemide (FUROSEMIDE) 10 Mg/1 Ml Vial, 20 MG IV DAILY for 1 Day, VIAL Prov:PRASANNA GIPSON MD 05/05/21 Acetaminophen (TYLENOL) 325 Mg Tablet, 325 MG PO Q4H PRN for PAIN 1 - 3 for 1 Day, TAB Prov:PRASANNA GIPSON MD 05/05/21 Reported Medications Magnesium Oxide (Magnesium) 400 Mg Tablet, 1 TAB PO BID for 30 Days, #60 TAB 0 Refills NEEDED 05/02/21 Atorvastatin 40MG (LIPITOR 40MG) 40 Mg Tablet, 1 TAB PO DAILY, #30 TAB 5 Refills 05/02/21 Carvedilol 6.25MG (COREG 6.25MG) 6.25 Mg Tablet, 1 TAB PO BID, #180 TAB 1 Refill 05/02/21 Diltiazem Hcl (DILTIAZEM 24HR CD) 120 Mg Cap.er.24h, 60 MG PO BID, CAPSULE 05/02/21 Apixaban (Eliquis) 2.5 Mg Tablet, 2.5 MG PO BID, TABLET 05/02/21 Losartan Potassium (LOSARTAN POTASSIUM) 100 Mg Tablet, 1 TAB PO DAILY24, #30 TAB 5 Refills 03/11/20 Past Medical History Medical History: cardiac problems, high cholesterol, hypertension Surgical History: no surgical history Social History Alcohol Use: none Drug Use: none Constitutional: denies no symptoms reported, denies see HPI, denies chills, denies diaphoresis, denies fever, denies malaise, denies weakness, denies other EENTM: denies no symptoms reported, denies see HPI, denies eye pain, denies blurred vision, denies tearing, denies double vision, denies ear pain, denies ear discharge, denies nose pain, denies nose congestion, denies throat pain, denies throat swelling, denies mouth pain, denies mouth swelling, denies other Respiratory: denies no symptoms reported, denies see HPI, denies cough, denies orthopnea, denies shortness of breath, denies SOB with exertion, denies SOB at rest, denies stridor, denies wheezing, denies other Cardiovascular: denies no symptoms reported, denies see HPI; chest pain; denies edema, denies irregular heart rate, denies lightheadedness, denies palpitations, denies syncope, denies other Gastrointestinal: denies no symptoms reported, denies see HPI, denies abdomen distended, denies abdominal pain, denies blood streaked bowels, denies constipated, denies diarrhea, denies difficulty swallowing, denies nausea, denies poor appetite, denies poor fluid intake, denies rectal bleeding, denies vomiting, denies other Genitourinary: denies no symptoms reported, denies see HPI, denies burning, denies dysuria, denies discharge, denies frequency, denies flank pain, denies hematuria, denies incontinence, denies pain, denies urgency, denies other Musculoskeletal: denies no symptoms reported, denies see HPI, denies back pain, denies gout, denies joint pain, denies joint swelling, denies muscle pain, denies muscle stiffness, denies neck pain, denies other Skin: denies no symptoms reported, denies see HPI, denies change in color, denies change in hair/nails, denies dryness, denies lesions, denies lumps, denies rash, denies other Psychiatric/Neurological: denies no symptoms reported, denies see HPI, denies anxiety, denies depressed, denies emotional problems, denies headache, denies numbness, denies paresthesia, denies pre-existing deficit, denies seizure, denies tingling, denies tremors, denies weakness, denies other Endocrine: denies no symptoms reported, denies see HPI, denies excessive sweating, denies flushing, denies intolerance to cold, denies intolerance to heat, denies increased hunger, denies increased thrist, denies increased urine, denies unexplained weight gain, denies unexplaned weight loss, denies other Hematologic/Lymphatic: denies no symptoms reported, denies see HPI, denies anemia, denies blood clots, denies easy bleeding, denies easy bruising, denies s wollen glands, denies other All Other Systems: Reviewed and Negative Physical Exam General Appearance: WD/WN, Mild Distress HEENT: PERRL/EOMI, Normal ENT Inspection, TMs Normal, Pharynx Normal Neck: Non-Tender, Full Range of Motion, Supple, Normal Inspection Respiratory: chest non-tender, lungs clear, normal breath sounds, no respiratory distress, no accessory muscle use Cardiovascular: Normal Peripheral Pulses, Regular Rate, Rhythm, No Edema, No Gallop, No JVD, Systolic Murmur Gastrointestinal: Normal Bowel Sounds, No Organomegaly, No Pulsatile Mass, Non Tender, Soft Rectal: Normal Exam Extremities: Normal Range of Motion, Non-Tender, Normal Inspection, No Pedal Edema, No Calf Tenderness, Normal Capillary Refill Neurologic/Psychiatric: wine fermenter II-XII NML as Tested, No Motor/Sensory Deficits, Alert, Normal Mood/Affect, Oriented x 3 Skin: Normal Color, Warm/Dry Lymphatic: No Adenopathy Results/Orders Results/Orders Vital Signs Date Time Temp Pulse Resp B/P (MAP) Pulse Ox O2 Delivery O2 Flow Rate FiO2 05/20/21 07:24 97.5 103 20 95 05/20/21 07:24 97.5 103 20 137/63 (87) 95 Room Air 05/20/21 07:24 97.5 103 20 Progress Progress According to the radiology report there are findings suggestive of underlying chronic lung disease such as COPD/emphysema. There are more confluent opacities at the lung bases bilaterally with blunting of the costophrenic angles. This may reflect pleural thickening or potential small pleural effusions. There is likely associated compressive atelectasis; however, underlying infiltrate is not excluded in the appropriate clinical setting, particularly on the left. The overall appearance is not significantly changed from the previous study. ER DEPART Departure Time of Disposition: 08:31 Disposition: 01 HOME / SELF CARE / HOMELESS Impression: Primary Impression: Chest pain Condition: Stable Patient Instructions: Chest Pain (Nonspecific) Referrals: SARAI MOJICA APPLICATION ARCHITECT (PCP) PRIMARY CARE PROVIDER Additional Instructions: Follow-up with Dr. Vences today. Duration or Time Spent with Pa: Unknown Problem Qualifiers Primary Impression: Chest pain Chest pain type: unspecified Qualified Codes: R07.9 - Chest pain, unspecified CAMDEN LUNDBERG MD May 20, 2021 07:34
[2021-05-20] MEDS ORDERED: ASPIRIN ONE (07:40)
[2021-05-20 07:43] LABS: BASOPHIL % 0.8 % (0.0-0.2); EOSINOPHIL # 0.1 10^3/uL (0.0-0.2); EOSINOPHIL % 1.3 % (0.0-5.0); LYMPHOCYTES # 0.93 10^3/uL1 (1.0-4.8); LYMPHOCYTES % 19.7 % (24.0-44.0); MEAN CORP HGB 31.1 pg (26-34); MONOCYTES # 0.4 10^3/uL (0.3-0.8); MONOCYTES % 8.7 % (5.0-12.0); NEUTROPHIL # 3.3 10^3/uL (1.8-7.7); NEUTROPHILS % 69.5 % (41.0-85.0); RED CELL DISTRIBUTION WIDTH 14.3 % (11.5-14.5)
--- NOTE | 2021-05-20 07:50 | DIREP ---
PROCEDURE:CHEST 1 VIEW COMPARISON:[facility], CR, XRAY CHEST SINGLE VW, 05/16/2021, 09:40 AM. INDICATIONS:chest pain FINDINGS: LUNGS/PLEURA:Hyperinflation with diffuse interstitial thickening throughout the bilateral hemithoraces. This is fairly similar to the previous study and would suggest a background of underlying chronic lung disease such as COPD/emphysema. There is blunting of the costophrenic angles bilaterally which is also fairly similar to the previous study and may reflect pleural thickening or potential small bilateral pleural effusions. There is likely associated compressive atelectasis at the lung bases. Underlying infiltrate is not excluded, particularly on the left. No pneumothorax. VASCULATURE:No overt central pulmonary vascular congestion. CARDIAC:Similar enlargement of the cardiac silhouette. MEDIASTINUM:Stable mediastinal contours with calcifications of the aorta. BONES:Degenerative changes of the spine. CONCLUSION: 1. Findings suggest underlying chronic lung disease such as COPD/emphysema. There are more confluent opacities at the lung bases bilaterally with blunting of the costophrenic angles. This may reflect pleural thickening or potential small pleural effusions. There is likely associated compressive atelectasis; however, underlying infiltrate is not excluded in the appropriate clinical setting, particularly on the left. The overall appearance is not significantly changed from the previous study. Dictated by: Juarez Ibrahim M.D. On 05/20/2021 at 07:45 AM
--- NOTE | 2021-05-20 08:00 | PCM.EKG ---
[facility] Test Date: 2021-05-20 Test Time: 07:24:46 Pat Name: KENA MCCOY Department: Patient ID: [facility]-[id number] Room: Gender: F Risk Management Internship: DEONTE : 1930 Requested By: CAMDEN FROST Order Number: [id number] Reading MD: Camden Frost Measurements Intervals [place] Rate: 101 P: [place]: QRS: -27 QRSD: 144 T: 125 QT: 380 QTc: 493 Interpretive Statements Atrial fibrillation Left bundle branch block Baseline wander in lead(s) V1 Compared to ECG 05/16/2021 11:05:26 No significant changes Electronically Signed On 05-20-2021 21:34:28 TRAVEL DIRECTOR by Camden Frost Please click the below link to view image of tracing.
[2021-05-20 08:04] VITALS: BP 133/70
[2021-05-20 08:12] LABS: CARBON DIOXIDE 25.4 mmol/L (20.0-32)
[2021-05-20 08:49] VITALS: BP 126/83
== END 2021-05-20 08:52 | disposition home or self-care (01) ==
LOC: ER 07:14
DX: R07.89 Other chest pain (principal); E78.00 Pure hypercholesterolemia, unspecified; I10 Essential (primary) hypertension; Z79.01 Long term (current) use of anticoagulants; Z79.899 Other long term (current) drug therapy; Z88.0 Allergy status to penicillin; Z88.5 Allergy status to narcotic agent
CPT/HCPCS: 36415; 71045; 80053; 83880; 84484; 85025; 85610; 85730; 93005; 99285

== ENCOUNTER 2021-05-26 09:10 | Emergency (ER) | payer MEDICARE ==
[2021-05-26 09:10] VITALS: BP 96/45
--- NOTE | 2021-05-26 09:22 | ER.PDOC ---
General Chief Complaint: Requesting Medical Care Stated Complaint: CHEST PAIN Time seen by MD: 09:11 Source: patient, EMS Exam Limitations: no limitations History of Present Illness Initial Comments 89-year-old female arriving by EMS for chest pain. Patient states she woke up this morning with significant amount of anterior chest pain that was pressure-li ke and was sitting on her chest. Patient had taken a single sublingual nitro and called EMS. EMS quotes that they had given her another dose of nitro which improved her pain here today. Patient states she has had a history of aneurysm in the thoracic aorta. As well as repeat chest pains in the past. Denies any sweating, no nausea, no vomiting does have leg swelling and did start the medications last week for the amount edema she was holding on including spironolactone and Lasix 80 mg daily. Timing/Duration: 4-6 hours Severity/Quality: moderate Radiation: no radiation Activities at Onset: activity/exertion Prior CP/Workup: Cardiac Cath, Other (Aneurysm ) Modifying Factors: breathing, coughing, nitroglycerin Nitro Today/Relief: 0.4 mg x 2 Allergies: Coded Allergies: Penicillins (Verified Allergy, Unknown, SWELLING, RASH, 03/11/20) codeine (Verified Allergy, Unknown, 03/11/20) Home Meds Active Scripts Pantoprazole Sodium (PROTONIX) 40 Mg Tablet.dr, 40 MG PO DAILY for 1 Day Prov:PRASANNA GIPSON MD 05/05/21 Potassium Chloride (KLOR-CON 10) 10 Meq Tablet.er, 20 MEQ PO STAT for 1 Day Prov:PRASANNA GIPSON MD 05/05/21 Furosemide (FUROSEMIDE) 10 Mg/1 Ml Vial, 20 MG IV DAILY for 1 Day, VIAL Prov:PRASANNA GIPSON MD 05/05/21 Acetaminophen (TYLENOL) 325 Mg Tablet, 325 MG PO Q4H PRN for PAIN 1 - 3 for 1 Day, TAB Prov:PRASANNA GIPSON MD 05/05/21 Reported Medications Magnesium Oxide (Magnesium) 400 Mg Tablet, 1 TAB PO BID for 30 Days, #60 TAB 0 Refills NEEDED 05/02/21 Atorvastatin 40MG (LIPITOR 40MG) 40 Mg Tablet, 1 TAB PO DAILY, #30 TAB 5 Refills 05/02/21 Carvedilol 6.25MG (COREG 6.25MG) 6.25 Mg Tablet, 1 TAB PO BID, #180 TAB 1 Refill 05/02/21 Diltiazem Hcl (DILTIAZEM 24HR CD) 120 Mg Cap.er.24h, 60 MG PO BID, CAPSULE 05/02/21 Apixaban (Eliquis) 2.5 Mg Tablet, 2.5 MG PO BID, TABLET 05/02/21 Losartan Potassium (LOSARTAN POTASSIUM) 100 Mg Tablet, 1 TAB PO DAILY24, #30 TAB 5 Refills 03/11/20 Past Medical History Medical History: cardiac problems, high cholesterol, hypertension Surgical History: no surgical history Social History Drug Use: none Cardiovascular: chest pain Psychiatric/Neurological: headache All Other Systems: Reviewed and Negative Physical Exam General Appearance: No Apparent Distress, WD/WN HEENT: PERRL/EOMI, Normal ENT Inspection, TMs Normal, Pharynx Normal Neck: Non-Tender, Full Range of Motion, Supple, Normal Inspection Respiratory: chest non-tender, lungs clear, normal breath sounds, no respiratory distress, no accessory muscle use Cardiovascular: Normal Peripheral Pulses, JVD, Gallop/S3, Irregularly Irregular Gastrointestinal: Normal Bowel Sounds, No Organomegaly, No Pulsatile Mass, Non Tender, Soft Rectal: Normal Exam Extremities: Normal Range of Motion, Non-Tender, Normal Inspection, No Calf Tenderness, Normal Capillary Refill, Pedal Edema Neurologic/Psychiatric: No Motor/Sensory Deficits, Alert, Normal Mood/Affect, Oriented x 3 Skin: Normal Color, Warm/Dry Lymphatic: No Adenopathy Progress Progress 11:36 AM: Spoke with Dr. Dickson who will see the patient during her high risk assessment for chest pain. Will admit to Dr. Felipe for monitoring. Patient's last CT was 05/02/2021 which was stable when compared to previous. Patient was given 1 L NS here in house and blood pressure improved to 110 systolic. We will continue monitor at this Patient and patient's family had decided to leave AGAINST MEDICAL ADVICE that she has a scheduled appointment tomorrow for a cardioversion of her A. fib. Discussed at length risk and benefits and patient is of sound mind and body to make her own decisions at this time ER DEPART Departure Time of Disposition: 11:37 Disposition: 07 LEFT AGAINST MEDICAL ADVICE Impression: Primary Impression: Hypotension Additional Impressions: Chest pain Aortic aneurysm Condition: Stable Referrals: LEFFEW,SARAI D WELDING PANTOGRAPH MACHINE OPERATOR (PCP) PRIMARY CARE PROVIDER Duration or Time Spent with Pa: 65 min Problem Qualifiers ADRIAN VALENCIA DO May 26, 2021 09:22
[2021-05-26] MEDS ORDERED: ZOFRAN IV STA (09:25)
[2021-05-26] MEDS ORDERED: ZOFRAN ONE (09:26)
[2021-05-26] MEDS ORDERED: NS 1000ML 1,000 ML ONE (09:26)
[2021-05-26] MEDS ORDERED: NS 1000ML 1,000 ML IV ONE (09:30)
[2021-05-26 09:33] LABS: BASOPHIL # 0.1 10^3/uL (0.0-0.1); BASOPHIL % 0.7 % (0.0-0.2); EOSINOPHIL # 0.1 10^3/uL (0.0-0.2); EOSINOPHIL % 1.1 % (0.0-5.0); LYMPHOCYTES # 1.17 10^3/uL1 (1.0-4.8); LYMPHOCYTES % 16.6 % (24.0-44.0); MONOCYTES # 0.6 10^3/uL (0.3-0.8); MONOCYTES % 8.4 % (5.0-12.0); NEUTROPHIL # 5.1 10^3/uL (1.8-7.7); NEUTROPHILS % 72.9 % (41.0-85.0); PLATELET COUNT 220 10^3/uL (150-400); RED CELL DISTRIBUTION WIDTH 14.3 % (11.5-14.5)
--- NOTE | 2021-05-26 09:38 | DIREP ---
PROCEDURE:CHEST 1 VIEW COMPARISON:[facility], [place], XRAY CHEST SINGLE VW, 05/20/2021, 07:37 AM. INDICATIONS:chest pain FINDINGS: LUNGS/PLEURA:The lungs are hyperinflated. No focal consolidation, effusion or pneumothorax. VASCULATURE:Normal. Unremarkable pulmonary vasculature. CARDIAC:Normal. No cardiac silhouette abnormality or cardiomegaly. MEDIASTINUM:Normal. No visible mass or adenopathy. BONES:Degenerative changes. OTHER:Negative. CONCLUSION:Hyperinflated lungs consistent with COPD in the proper clinical setting. No acute abnormality noted. Dictated by: Diaz Buckner M.D. on 05/26/2021 at 09:35 AM
[2021-05-26] MEDS ORDERED: TYLENOL PO ONE (09:56)
[2021-05-26 10:04] LABS: CARBON DIOXIDE 24.9 mmol/L (20.0-32); GLUCOSE 157 mg/dL (70-110)
--- NOTE | 2021-05-26 11:26 | PCM.EKG ---
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
--- NOTE | 2021-05-26 13:15 | NUR ---
DC 18G REMOVED FROM R FA, CATHETER INTACT. PT TAKEN BY WC TO CAR IN STABLE CONDITION.
== END 2021-05-26 13:32 | disposition left against medical advice (07) ==
LOC: EDBD 09:10 → ER 09:10
DX: I71.9 Aortic aneurysm of unspecified site, without rupture (principal); I95.9 Hypotension, unspecified; R07.89 Other chest pain; I10 Essential (primary) hypertension; E78.00 Pure hypercholesterolemia, unspecified; Z20.822 Contact with and (suspected) exposure to COVID-19; Z79.01 Long term (current) use of anticoagulants; Z79.899 Other long term (current) drug therapy; Z88.0 Allergy status to penicillin; Z88.5 Allergy status to narcotic agent
CPT/HCPCS: 36415; 71045; 80053; 82553; 83880; 84484 ×2; 85025; 85610; 85730; 87426; 93005; 96361; 96374; 99285; J2405; J7030

== ENCOUNTER → 2021-06-02 | Outpatient (CLI) | payer MEDICARE ==
[2021-06-02 14:47] LABS: CARBON DIOXIDE 28.4 mmol/L (20.0-32)
== END | disposition home or self-care (01) ==
LOC: NPLAB 14:18
PROVIDERS: ATTEND Internal Medicine Cardiovascular Disease
DX: I48.0 Paroxysmal atrial fibrillation (principal)
CPT/HCPCS: 36415; 80048

== ENCOUNTER 2022-02-11 13:45 | Emergency (ER) | payer MEDICARE ==
[2022-02-11 13:49] VITALS: BP_SYST 150; BP_DIAS 70; BP_DIAS 77
--- NOTE | 2022-02-11 14:23 | PCM.EKG ---
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
[2022-02-11 14:34] LABS: BILIRUBIN,URINE NEGATIVE (NEGATIVE); UROBILINOGEN,URINE 0.2 E.U./dL (0.2)
--- NOTE | 2022-02-11 14:44 | ER.PDOC ---
General Chief Complaint: General Complaint Stated Complaint: GENERAL COMPLAINT TRAVEL OUT OF US: No Time seen by MD: 14:00 Source: patient, family Exam Limitations: no limitations History of Present Illness Initial Comments 89-year-old female comes in with generalized body weakness since yesterday. No particular symptoms. No shortness of breath and no chest pain. No nausea no vomiting. No fever and no chills. No abdominal pain. No diarrhea. No burning upon urination. No visual no motor deficits. Symptoms are mild but persistent. Allergies: Coded Allergies: Penicillins (Verified Allergy, Unknown, SWELLING, RASH, 03/11/20) codeine (Verified Allergy, Unknown, 03/11/20) Home Meds Active Scripts Pantoprazole Sodium (PROTONIX) 40 Mg Tablet.dr, 40 MG PO DAILY for 1 Day Prov:PRASANNA GIPSON MD 05/05/21 Potassium Chloride (KLOR-CON 10) 10 Meq Tablet.er, 20 MEQ PO STAT for 1 Day Prov:PRASANNA GIPSON MD 05/05/21 Furosemide (FUROSEMIDE) 10 Mg/1 Ml Vial, 20 MG IV DAILY for 1 Day, VIAL Prov:PRASANNA GIPSON MD 05/05/21 Acetaminophen (TYLENOL) 325 Mg Tablet, 325 MG PO Q4H PRN for PAIN 1 - 3 for 1 Day, TAB Prov:PRASANNA GIPSON MD 05/05/21 Reported Medications Magnesium Oxide (Magnesium) 400 Mg Tablet, 1 TAB PO BID for 30 Days, #60 TAB 0 Refills NEEDED 05/02/21 Atorvastatin 40MG (LIPITOR 40MG) 40 Mg Tablet, 1 TAB PO DAILY, #30 TAB 5 Refills 05/02/21 Carvedilol 6.25MG (COREG 6.25MG) 6.25 Mg Tablet, 1 TAB PO BID, #180 TAB 1 Refill 05/02/21 Diltiazem Hcl (DILTIAZEM 24HR CD) 120 Mg Cap.er.24h, 60 MG PO BID, CAPSULE 05/02/21 Apixaban (Eliquis) 2.5 Mg Tablet, 2.5 MG PO BID, TABLET 05/02/21 Losartan Potassium (LOSARTAN POTASSIUM) 100 Mg Tablet, 1 TAB PO DAILY24, #30 TAB 5 Refills 03/11/20 Past Medical History Medical History: arrhythmia, CVA/TIA/stroke, hypertension Surgical History: no surgical history LMP (females 10-50): N/A Not applicalbe Family History Significant Family History: no pertinent family hx Social History Smoking: non-smoker Alcohol Use: none Drug Use: none Reviewed Nursing Reviewed: Vital Signs, Abn. Noted, Nursing Assessment Review of Systems Constitutional: denies no symptoms reported, denies see HPI, denies chills, denies diaphoresis, denies fever, denies malaise, denies weakness, denies other EENTM: denies no symptoms reported, denies see HPI, denies eye pain, denies blurred vision, denies tearing, denies double vision, denies ear pain, denies ear discharge, denies nose pain, denies nose congestion, denies throat pain, denies throat swelling, denies mouth pain, denies mouth swelling, denies other Respiratory: denies no symptoms reported, denies see HPI, denies cough, denies orthopnea, denies shortness of breath, denies stridor, denies wheezing, denies other Cardiovascular: denies no symptoms reported, denies see HPI, denies chest pain, denies edema, denies palpitations, denies syncope, denies other Gastrointestinal: denies no symptoms reported, denies see HPI, denies abdominal pain, denies constipation, denies diarrhea, denies nausea, denies vomiting, denies other Genitourinary: denies no symptoms reported, denies see HPI, denies discharge, denies dysuria, denies frequency, denies hematuria, denies pain, denies other Musculoskeletal: denies no symptoms reported, denies see HPI, denies back pain, denies gout, denies joint pain, denies joint swelling, denies muscle pain, den ies muscle stiffness, denies neck pain, denies other Skin: denies no symptoms reported, denies see HPI, denies change in color, denies change in hair/nails, denies dryness, denies lesions, denies lumps, denies rash, denies other Psychiatric/Neurological: denies no symptoms reported, denies see HPI, denies anxiety, denies depressed, denies emotional problems, denies headache, denies numbness, denies paresthesia, denies pre-existing deficit, denies seizure, denies tingling, denies tremors, denies weakness, denies other Hematologic/Lymphatic: denies no symptoms reported, denies see HPI, denies anemia, denies blood clots, denies easy bleeding, denies easy bruising, denies swollen glands, denies other Immunological/Allergic: denies no symptoms reported, denies see HPI, denies food allergy, denies grass allergy, denies mold allergy, denies pollen allergy, denies HIV/AIDS, denies transplant All Other Systems: Reviewed and Negative (A proceed with this at the okay and initially was going to be home with 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 II-XII NML as Tested, No Motor/Sensory Deficits, Alert, Normal Mood/Affect, Oriented x 3 Skin: Normal Color, Warm/Dry Lymphatic: No Adenopathy Results/Orders Results/Orders Orders - BASIL NEFF MD Cbc With Auto Diff (02/11/22 14:01) Comprehensive Metabolic Panel (02/11/22 14:01) D-Dimer (02/11/22 14:01) Ekg-Routine (02/11/22 14:01) Troponin I High Sensitivity (02/11/22 14:01) Strep Screen (02/11/22 14:28) Covid19 Antigen Sofi Amanda (02/11/22 14:28) Influenza A&B (02/11/22 14:28) Urinalysis (02/11/22 14:28) Vital Signs Date Time Temp Pulse Resp B/P (MAP) Pulse Ox O2 Delivery O2 Flow Rate FiO2 8/31/22 16:06 71 18 130/73 (92) 96 Room Air* 0 21 02/11/22 13:49 97.8 73 18 99 02/11/22 13:49 97.8 73 18 02/11/22 13:49 97.8 73 18 150/77 (101) 99 Room Air* 0 21 Laboratory Tests Test 02/11/22 13:52 02/11/22 14:38 02/11/22 14:58 Urine Collection Type UNKNOWN Urine Color STRAW Urine Appearance CLEAR Urine Bilirubin NEGATIVE (NEGATIVE) Urine Ketones NEGATIVE (NEGATIVE) Urine Specific [place] 1.015 (1.005-1.030) Urine pH 7.0 (4.5-8.0) Urine Protein NEGATIVE (NEGATIVE) Urine Urobilinogen 0.2 E.U./dL (0.2) Urine Nitrate NEGATIVE (NEGATIVE) Urine Leukocyte Esterase NEGATIVE (NEGATIVE) Urine Glucose (Auto)(UA) 250 mg/dL (NEGATIVE) H Urine Blood NEGATIVE (NEGATIVE) Influenza Type A Antigen NEGATIVE (NEG) Influenza Type B Antigen NEGATIVE (NEG) SARS-CoV-2 Antigen (Rapid) NEGATIVE (NEGATIVE) Group A Streptococcus Screen NEGATIVE (NEGATIVE) White Blood Count 3.5 10^3/uL (4.5-11.0) L Red Blood Count 3.63 10^6/uL (4.00-5.20) L Hemoglobin 12.1 g/dL (12.0-15.0) Hematocrit 37.6 % (36.0-46.0) Mean Corpuscular Volume 103.6 fL (78-100) H Mean Corpuscular Hemoglobin 33.3 pg (26-34) Mean Corpuscular Hemoglobin Concent 32.2 g/dL (33-36.5) L Red Cell Distribution Width 13.1 % (11.5-14.5) Platelet Count 156 10^3/uL (150-400) Mean Platelet Volume 11.0 fL (7.8-11.0) Neutrophils (%) (Auto) 66.1 % (41.0-85.0) Lymphocytes (%) (Auto) 23.9 % (24.0-44.0) L Monocytes (%) (Auto) 7.1 % (5.0-12.0) Neutrophils # (Auto) 2.3 10^3/uL (1.8-7.7) Lymphocytes # (Auto) 0.84 10^3/uL1 (1.0-4.8) L Monocytes # (Auto) 0.3 10^3/uL (0.3-0.8) Absolute Immature Granulocyte (auto 0 10^3 u/L (0-2) Absolute Eosinophils (auto) 0.1 10^3/uL (0.0-0.2) Immature Granulocytes % 0.00 % (0.00-0.50) Eosinophils % 2.0 % (0.0-5.0) Basophils % 0.9 % (0.0-0.2) H Basophils # 0.0 10^3/uL (0.0-0.1) D-Dimer < 0.19 mg/L (0.19-0.49) L Sodium Level 141 mmol/L (132-145) Potassium Level 4.6 mmol/L (3.6-5.2) Chloride Level 106.0 mmol/L (96-109) Carbon Dioxide Level 26.4 mmol/L (20.0-32) Anion Gap 13.2 Blood Urea Nitrogen 19 mg/dL (7-18) H Creatinine 1.21 mg/dL (0.59-1.40) Estimated GFR () 50.7 (>/=60) Est GFR (CKD-EPI)(Non-Afr Lao) 41.9 (>/=60) BUN/Creatinine Ratio 15.0 Glucose Level 105 mg/dL (70-110) Calcium Level 11.3 mg/dL (8.4-10.5) H Total Bilirubin 0.7 mg/dL (0.2-1.0) Aspartate Amino Transferase (AST) 25 U/L (0-35) Alanine Aminotransferase (ALT) 28 U/L (12-78) Alkaline Phosphatase 93 U/L (50-136) Troponin I High Sensitivity 10 ng/L (0-50) Total Protein 7.1 g/dL (6.4-8.2) Albumin 3.8 g/dL (3.4-5.0) Globulin 3.3 Albumin/Globulin Ratio 1.151 Progress Progress Patient here with no specific complaint. The labs are essentially unremarkable. Urine is normal. I do not see need for any further work-up. Her physical exam is normal and vital signs are normal. I will discharge home and she can follow- up with her primary care doctor ER DEPART Departure Time of Disposition: 16:19 Disposition: 01 HOME / SELF CARE / HOMELESS Impression: Primary Impression: Weakness generalized Condition: Stable Referrals: SARAI MOJICA PACKAGER MACHINE (PCP) PRIMARY CARE PROVIDER Additional Instructions: Eat adequate nutritious meal 3 times a day Maintain yourself hydrated Follow-up with your doctor soon as possible Return to the hospital if any new symptoms develop Duration or Time Spent with Pa: 35 BASIL NEFF MD Feb 11, 2022 14:44
[2022-02-11 15:05] LABS: BASOPHIL % 0.9 % (0.0-0.2); EOSINOPHIL # 0.1 10^3/uL (0.0-0.2); LYMPHOCYTES # 0.84 10^3/uL1 (1.0-4.8); LYMPHOCYTES % 23.9 % (24.0-44.0); MEAN CORP HGB 33.3 pg (26-34); MONOCYTES # 0.3 10^3/uL (0.3-0.8); MONOCYTES % 7.1 % (5.0-12.0); NEUTROPHIL # 2.3 10^3/uL (1.8-7.7); NEUTROPHILS % 66.1 % (41.0-85.0); RED CELL DISTRIBUTION WIDTH 13.1 % (11.5-14.5)
[2022-02-11 15:29] LABS: CARBON DIOXIDE 26.4 mmol/L (20.0-32)
[2022-02-11 16:06] VITALS: BP 130/73
== END 2022-02-11 16:28 | disposition home or self-care (01) ==
LOC: ER 13:45
DX: R53.1 Weakness (principal); Z20.822 Contact with and (suspected) exposure to COVID-19; I44.7 Left bundle-branch block, unspecified; I10 Essential (primary) hypertension; Z86.73 Personal history of transient ischemic attack (TIA), and cerebral infarction without residual deficits; Z88.0 Allergy status to penicillin; Z88.5 Allergy status to narcotic agent
CPT/HCPCS: 36415; 80053; 81003; 84484; 85025; 85379; 87070; 87426; 87804; 87880; 93005; 99284